=== PATIENT | female | born 1950 | race Caucasian/White ===

== ENCOUNTER 2018-03-02 00:31 | Observation (INO) | payer MEDICARE, OTHER ==
[2018-03-02] MEDS ORDERED: Albuterol/Ipratropium 3.0-0.5 MG/3 ML Neb Soln NEB ONE (00:40)
[2018-03-02] MEDS ORDERED: methylPREDNISolone Sodium Succinate 125 MG/2 ML SDV IVPUSH ONE (00:41)
[2018-03-02] MEDS ORDERED: Albuterol 0.083% 2.5 MG/3 ML Neb Soln NEB PRN (01:59)
--- NOTE | 2018-03-02 01:59 | EDM.PDOC ---
ED HPI GENERAL MEDICAL PROBLEM - General Stated Complaint: TROUBLE BREATHING Time Seen by Provider: 03/02/18 00:31 Source of Information: Reports: Patient, Family History Limitations: Reports: Respiratory Distress - History of Present Illness INITIAL COMMENTS - FREE TEXT/NARRATIVE: 68 y.o.w.f with a h/o COPD-still smoking, not on Home O2- CHF, Lung CA with mets to bones, came to ED due to worsening of her SOB. Pulse ox 88 on RA. In the past, the pt took a Lasix and the SOB improved, not today, however. Pt was able to talk one word sentences only. Her primary survey showed poor air movement throughout her lungs. No F/C, no C/P no N/V/D or dizziness. Pt was never intubated or admitted for her emphysema. No other acute medical issues BP 108/67 pulse 76 RR 22 Pulse 0x 92 on 3 liters O2 by NC Temp 36.7 Onset: Today Onset Date: 03/01/18 Onset Time: 20:00 Duration: Hour(s): Location: Reports: Chest Severity: Moderate Improves with: Reports: Rest Worsens with: Reports: Movement Context: Reports: Other (copd, H/O CHR) Associated Symptoms: Reports: Cough, Shortness of Breath, Weakness - Related Data Allergies Allergy/AdvReac Type Severity Reaction Status Date / Time fentanyl Allergy Delusions Verified 03/02/18 01:40 Home Meds: Home Meds Citalopram Hydrobromide [Celexa] 20 mg PO BID 01/25/15 [History] Famotidine [Pepcid] 10 mg PO BID PRN 01/25/15 [History] Gabapentin [Neurontin] 600 mg PO TID 01/25/15 [History] HYDROmorphone [Dilaudid] 1 - 2 tab PO Q3HR PRN 01/25/15 [History] Loperamide [Imodium] 2 mg PO Q6H PRN 01/25/15 [History] Ondansetron [Zofran] 8 mg PO TID PRN 01/25/15 [History] Amitriptyline [Elavil] 10 mg PO BEDTIME 01/26/15 [History] Furosemide [Lasix] 20 mg PO ASDIRECTED PRN 11/04/16 [History] Pazopanib HCl [Votrient] 600 mg PO DAILY 11/04/16 [History] Amoxicillin/Clavulanate K [Augmentin 875-125 MG] 1 tab PO BID #10 tablet [Rx] Carvedilol [Coreg] 12.5 mg PO BID 03/02/18 [History] Diphenoxylate HCl/Atropine [Lomotil] 1 tab PO Q4H PRN 03/02/18 [History] HYDROmorphone [Dilaudid] 4 mg PO Q3H PRN tablet 03/02/18 [Rx] Ibuprofen 400 mg PO DAILY PRN 03/02/18 [History] Lisinopril [Prinivil] 5 mg PO DAILY 03/02/18 [History] Nitroglycerin [Nitrostat] 0.4 mg SL ASDIRECTED PRN #90 tab.sl 03/02/18 [Rx] Ticagrelor [Brilinta] 90 mg PO BID 03/02/18 [History] atorvaSTATin [Lipitor] 20 mg PO DAILY 03/02/18 [History] predniSONE [Prednisone] 40 mg PO ACBREAKFAST #10 tablet 03/02/18 [Rx] Past Medical History HEENT History: Reports: Impaired Vision, Other (See Below) Respiratory History: Reports: Pneumonia, Recurrent Gastrointestinal History: Reports: GERD Musculoskeletal History: Reports: Fracture, Osteoarthritis Psychiatric History: Reports: Depression Hematologic History: Reports: Polycythemia Oncologic (Cancer) History: Reports: Bone, Metastatic - Past Surgical History GI Surgical History: Reports: Colon, Hernia Repair/Other Female Surgical History: Reports: Hysterectomy, Other (See Below) Social & Family History - Tobacco Use Smoking Status *Q: Current Every Day Smoker Years of Tobacco use: 50 Used Tobacco, but Quit: Yes Month/Year Tobacco Last Used: unknown Second Hand Smoke Exposure: No - Caffeine Use Caffeine Use: Reports: Coffee - Alcohol Use Days Per Week of Alcohol Use: 0 - Recreational Drug Use Recreational Drug Use: No ED ROS GENERAL - Review of Systems Review Of Systems: Unable To Obtain (Due to resp distress) ED EXAM, GENERAL - Physical Exam Exam: See Below Exam Limited By: Respiratory Distress General Appearance: Alert, WD/WN, Moderate Distress, Thin Eye Exam: Bilateral Eye: Normal Inspection Ears: Normal External Exam Ear Exam: Bilateral Ear: Auricle Normal Nose: Normal Inspection, Normal Mucosa Throat/Mouth: Normal Lips, No Airway Compromise Head: Atraumatic, Normocephalic Neck: Normal Inspection, Supple, Non-Tender, Full Range of Motion Respiratory/Chest: Respiratory Distress, Decreased Breath Sounds, Accessory Muscle Use, Prolonged Expiration Cardiovascular: Normal Peripheral Pulses, Regular Rate, Rhythm, No Edema, No Gallop, No JVD Peripheral Pulses: 1+: Radial (L) GI/Abdominal: Normal Bowel Sounds, Soft, Non-Tender, No Organomegaly, No Distention, No Abnormal Bruit (Female) Exam: Deferred Rectal (Female) Exam: Deferred Back Exam: Normal Inspection, Full Range of Motion Extremities: Other (amputated R lower extremity due to mets) Neurological: Alert, Oriented, Abnormal Gait Psychiatric: Normal Affect, Normal Mood Skin Exam: Warm, Dry, Normal Color, No Rash Lymphatic: No Adenopathy EKG INTERPRETATION EKG Date: 03/02/18 Time: 01:35 Rhythm: NSR Rate (Beats/Min): 68 [place]: Normal P-Wave: Present QRS: Normal ST-T: Normal QT: Normal Comparison: NA - No Prior EKG Course - Vital Signs Text/Narrative:: 68 y.o.w.f with a h/o COPD-still smoking, not on Home O2- CHF, Lung CA with mets to bones, came to ED due to worsening of her SOB. Pulse ox 88 on RA. In the past, the pt took a Lasix and the SOB improved, not today, however. Pt was able to talk one word sentences only. Her primary survey showed poor air movement throughout her lungs. No F/C, no C/P no N/V/D or dizziness. Pt was never intubated or admitted for her emphysema. No other acute medical issues BP 108/67 pulse 76 RR 20 Pulse 0x 92 on 3 liters O2 by NC Temp 36.7 PE: thin 68 y.o.w.f with severe COPD, metastatic lung CA, S/P R lower leg amputation, able to talk one word sentence. Imaging: CXR Emphysema with mets Labs: WBC 8.5 HGB 17.6 HCT 49.5 BUN 20 Cr. 0.7 BUN/CR elevated GFR >60 BNP 775 Impression: COPD exacerbation, dehydration, H/O CHF, Metastatic lung CA, S/P amputation of right lower extremity. Full Code Tx: Duoneb, Solu Medrol, O2 by NC 3 liters. NS (250 cc bolus) Reexam: Improved Plan: Admit to obs Last Recorded V/S: Last Vital Signs Temp 36.3 C 03/02/18 08:27 Pulse 74 03/02/18 11:00 Resp 18 03/02/18 08:27 BP 115/75 03/02/18 08:27 Pulse Ox 93 L 03/02/18 11:02 - Orders/Labs/Meds Orders: Active Orders 24 hr Category Date Time Status Patient Status [ADT] Routine ADT 03/02/18 02:00 Active Oxygen Therapy [RC] PRN Care 03/02/18 02:00 Active Pulse Oximetry [RC] PRN Care 03/02/18 02:02 Active RT Aerosol Therapy [RC] ASDIRECTED Care 03/02/18 00:40 Active Up With Assistance [RC] ASDIRECTED Care 03/02/18 01:59 Active Vital Signs [RC] Q4H Care 03/02/18 02:00 Active Heart Healthy Diet [DIET] Diet 03/02/18 Breakfast Ordered Chest 1V Frontal [CR] Stat Exams 03/02/18 00:41 Taken CULTURE BLOOD [BC] Urgent Lab 03/02/18 00:58 Received CULTURE BLOOD [BC] Urgent Lab 03/02/18 01:05 Received Blood Culture x2 Reflex Set [OM.PC] Urgent Oth 03/02/18 00:41 Ordered Resuscitation Status Routine Resus Stat 03/02/18 01:59 Ordered EKG 12 Lead [EK] Routine Ther 03/02/18 00:42 Ordered Medication Orders Albuterol (Proventil Neb Soln) 2.5 mg NEB Q4H PRN PRN Reason: q4h every 4 hours while a wake Last Admin: 03/02/18 04:58 Dose: 2.5 mg Amitriptyline HCl (Elavil) 10 mg PO BEDTIME [facility] Amoxicillin/Clavulanate Potassium (Augmentin 875 Mg/125 Mg) 1 tab PO BID [facility] Stop: 03/08/18 21:01 Last Admin: 03/02/18 10:47 Dose: 1 tab Atorvastatin Calcium (Lipitor) 20 mg PO DAILY [facility] Last Admin: 03/02/18 10:46 Dose: 20 mg Carvedilol (Coreg) 12.5 mg PO BID [facility] Last Admin: 03/02/18 10:46 Dose: 12.5 mg Citalopram Hydrobromide (Celexa) 20 mg PO BID [facility] Last Admin: 03/02/18 10:46 Dose: 20 mg Diphenoxylate HCl/Atropine (Lomotil 0.025-2.5 Mg) 1 tab PO Q4H PRN PRN Reason: Diarrhea Famotidine (Pepcid) 10 mg PO BID PRN PRN Reason: Heartburn Furosemide (Lasix) 20 mg PO ASDIRECTED PRN PRN Reason: Edema Gabapentin (Neurontin) 600 mg PO TID [facility] Last Admin: 03/02/18 10:47 Dose: 600 mg Hydromorphone HCl (Dilaudid) 4 mg PO Q3H PRN PRN Reason: cancer and phantom pain Last Admin: 03/02/18 08:41 Dose: 4 mg Admin: 03/02/18 03:37 Dose: 4 mg Sodium Chloride (Normal Saline) 250 mls @ 125 mls/hr IV ASDIRECTED [facility] Last Admin: 03/02/18 02:32 Dose: 125 mls/hr Lisinopril (Prinivil) 5 mg PO DAILY [facility] Last Admin: 03/02/18 10:47 Dose: 5 mg Loperamide HCl (Imodium) 2 mg PO Q6H PRN PRN Reason: Diarrhea Methylprednisolone Sodium Succinate (Solu-Medrol) 125 mg IVPUSH Q8H [facility] Last Admin: 03/02/18 08:42 Dose: 125 mg Miscellaneous Information (Remove Patch) 1 ea TRDERM BEDTIME PRN PRN Reason: NICOTINE PATCH Nicotine (Habitrol) 14 mg TRDERM DAILY PRN PRN Reason: nicotine supplement Nitroglycerin (Nitrostat) 0.4 mg SL ASDIRECTED PRN PRN Reason: Chest Pain Sodium Chloride (Saline Flush) 10 ml FLUSH ASDIRECTED PRN PRN Reason: Keep Vein Open Last Admin: 03/02/18 09:09 Dose: 10 ml Ticagrelor (Brilinta) 90 mg PO BID [facility] Last Admin: 03/02/18 10:46 Dose: 90 mg Labs: Laboratory Tests 03/02/18 03/02/18 03/02/18 Range/Units 00:58 00:58 00:58 WBC 8.5 (4.5-12.0) X10-3/uL RBC 5.24 H (3.23-5.20) x10(6)uL Hgb 17.6 H D (11.5-15.5) g/dL Hct 52.7 H D (30.0-51.3) % MCV 100.7 H (80-96) fL MCH 33.6 (27.7-33.6) pg MCHC 33.4 (32.2-35.4) g/dL RDW 13.7 (11.5-15.5) % Plt Count 192 (125-369) X10(3)uL MPV 9.2 (7.4-10.4) fL Neut % (Auto) 59.7 (46-82) % Lymph % (Auto) 30.0 (13-37) % Hunt % (Auto) 8.2 (4-12) % Eos % (Auto) 1 (1.0-5.0) % Baso % (Auto) 1 (0-2) % Neut # (Auto) 5.0 (1.6-8.3) # Lymph # (Auto) 2.6 (0.6-5.0) # Hunt # (Auto) 0.7 (0.0-1.3) # Eos # (Auto) 0.1 (0.0-0.8) # Baso # (Auto) 0.1 (0.0-0.2) # PT 9.7 (8.7-11.1) INR 0.96 (0.89-1.13) Sodium 138 (135-145) mmol/L Potassium 3.8 (3.5-5.3) mmol/L Chloride 99 L (100-110) mmol/L Carbon Dioxide 32 (21-32) mmol/L BUN 20 H (7-18) mg/dL Creatinine 0.7 (0.55-1.02) mg/dL Est Cr Clr Drug Dosing TNP Estimated GFR (MDRD) > 60 (>60) BUN/Creatinine Ratio 28.6 H (9-20) Glucose 98 (80-116) mg/dL Lactic Acid (0.4-2.2) mmol/L Calcium 9.4 (8.6-10.2) mg/dL Troponin I (<0.017-0.056) ng/mL C-Reactive Protein (0.5-0.9) mg/dL NT-Pro-B Natriuret Pep (<=125) pg/mL 03/02/18 03/02/18 03/02/18 Range/Units 00:58 00:58 01:05 WBC (4.5-12.0) X10-3/uL RBC (3.23-5.20) x10(6)uL Hgb (11.5-15.5) g/dL Hct (30.0-51.3) % MCV (80-96) fL MCH (27.7-33.6) pg MCHC (32.2-35.4) g/dL RDW (11.5-15.5) % Plt Count (125-369) X10(3)uL MPV (7.4-10.4) fL Neut % (Auto) (46-82) % Lymph % (Auto) (13-37) % Hunt % (Auto) (4-12) % Eos % (Auto) (1.0-5.0) % Baso % (Auto) (0-2) % Neut # (Auto) (1.6-8.3) # Lymph # (Auto) (0.6-5.0) # Hunt # (Auto) (0.0-1.3) # Eos # (Auto) (0.0-0.8) # Baso # (Auto) (0.0-0.2) # PT (8.7-11.1) INR (0.89-1.13) Sodium (135-145) mmol/L Potassium (3.5-5.3) mmol/L Chloride (100-110) mmol/L Carbon Dioxide (21-32) mmol/L BUN (7-18) mg/dL Creatinine (0.55-1.02) mg/dL Est Cr Clr Drug Dosing Estimated GFR (MDRD) (>60) BUN/Creatinine Ratio (9-20) Glucose (80-116) mg/dL Lactic Acid 0.8 (0.4-2.2) mmol/L Calcium (8.6-10.2) mg/dL Troponin I < 0.017 L (<0.017-0.056) ng/mL C-Reactive Protein 0.2 L (0.5-0.9) mg/dL NT-Pro-B Natriuret Pep 774 H (<=125) pg/mL Meds: Medications Generic Name Dose Route Start Last Admin Trade Name Freq PRN Reason Stop Dose Admin Albuterol 2.5 mg 03/02/18 02:08 03/02/18 04:58 Proventil Neb Soln NEB 2.5 mg Q4H PRN Administration q4h every 4 hours while a wake Amitriptyline HCl 10 mg 03/02/18 21:00 Elavil PO BEDTIME [facility] Amoxicillin/Clavulanate Potassium 1 tab 03/02/18 10:00 03/02/18 10:47 Augmentin 875 Mg/125 Mg PO 03/08/18 21:01 1 tab BID [facility] Administration Atorvastatin Calcium 20 mg 03/02/18 09:30 03/02/18 10:46 Lipitor PO 20 mg DAILY [facility] Administration Carvedilol 12.5 mg 03/02/18 09:30 03/02/18 10:46 Coreg PO 12.5 mg BID [facility] Administration Citalopram Hydrobromide 20 mg 03/02/18 09:30 03/02/18 10:46 Celexa PO 20 mg BID [facility] Administration Diphenoxylate HCl/Atropine 1 tab 03/02/18 09:17 Lomotil 0.025-2.5 Mg PO Q4H PRN Diarrhea Famotidine 10 mg 03/02/18 09:17 Pepcid PO BID PRN Heartburn Furosemide 20 mg 03/02/18 09:17 Lasix PO ASDIRECTED PRN Edema Gabapentin 600 mg 03/02/18 10:00 03/02/18 10:47 Neurontin PO 600 mg TID [facility] Administration Hydromorphone HCl 4 mg 03/02/18 03:28 03/02/18 08:41 Dilaudid PO 4 mg Q3H PRN Administration cancer and phantom pain Sodium Chloride 250 mls @ 125 mls/hr 03/02/18 02:30 03/02/18 02:32 Normal Saline IV 125 mls/hr ASDIRECTED [facility] Administration Lisinopril 5 mg 03/02/18 09:30 03/02/18 10:47 Prinivil PO 5 mg DAILY [facility] Administration Loperamide HCl 2 mg 03/02/18 09:17 Imodium PO Q6H PRN Diarrhea Methylprednisolone Sodium Succinate 125 mg 03/02/18 09:00 03/02/18 08:42 Solu-Medrol IVPUSH 125 mg Q8H [facility] Administration Miscellaneous Information 1 ea 03/02/18 10:11 Remove Patch TRDERM BEDTIME PRN NICOTINE PATCH Nicotine 14 mg 03/02/18 09:23 Habitrol TRDERM DAILY PRN nicotine supplement Nitroglycerin 0.4 mg 03/02/18 09:17 Nitrostat SL ASDIRECTED PRN Chest Pain Sodium Chloride 10 ml 03/02/18 08:52 03/02/18 09:09 Saline Flush FLUSH 10 ml ASDIRECTED PRN Administration Keep Vein Open Ticagrelor 90 mg 03/02/18 09:30 03/02/18 10:46 Brilinta PO 90 mg BID [facility] Administration Discontinued Medications Generic Name Dose Route Start Last Admin Trade Name Freq PRN Reason Stop Dose Admin Acetaminophen 650 mg 03/02/18 09:23 Tylenol PO Q4H PRN Pain (Mild 1-3)/fever Albuterol 2.5 mg 03/02/18 01:59 Proventil Neb Soln NEB Q2H PRN Shortness Of Breath/wheezing Albuterol/Ipratropium 3 ml 03/02/18 00:40 03/02/18 00:53 Duoneb 3.0-0.5 Mg/3 Ml NEB 03/02/18 00:41 3 ml ONETIME ONE Administration Docusate Sodium 100 mg 03/02/18 09:23 Colace PO BID PRN Constipation Enoxaparin Sodium 30 mg 03/02/18 10:00 03/02/18 10:48 Lovenox SUBCUT Not Given Q24H [facility] Sodium Chloride 1,000 mls @ 125 mls/hr 03/02/18 02:00 Normal Saline IV ASDIRECTED [facility] Lactated Ringer's 1,000 mls @ 125 mls/hr 03/02/18 09:30 Ringers, Lactated IV ASDIRECTED [facility] Methylprednisolone Sodium Succinate 125 mg 03/02/18 00:41 03/02/18 01:06 Solu-Medrol IVPUSH 03/02/18 00:42 125 mg ONETIME ONE Administration Methylprednisolone Sodium Succinate 125 mg 03/02/18 02:15 03/02/18 03:20 Solu-Medrol IVPUSH Not Given Q8H [facility] Zolpidem Tartrate 5 mg 03/02/18 09:23 Ambien PO BEDTIME PRN Sleep Departure - Departure Time of Disposition: 01:59 Disposition: Refer to Observation Condition: Fair Clinical Impression: COPD exacerbation - Discharge Information - My Orders Last 24 Hours: My Active Orders 03/02/18 00:40 RT Aerosol Therapy [RC] ASDIRECTED 03/02/18 00:41 Chest 1V Frontal [CR] Stat Blood Culture x2 Reflex Set [OM.PC] Urgent 03/02/18 00:42 EKG 12 Lead [EK] Routine 03/02/18 00:58 CULTURE BLOOD [BC] Urgent 03/02/18 01:05 CULTURE BLOOD [BC] Urgent 03/02/18 01:59 Up With Assistance [RC] ASDIRECTED Resuscitation Status Routine 03/02/18 02:00 Patient Status [ADT] Routine Oxygen Therapy [RC] PRN Vital Signs [RC] Q4H 03/02/18 02:02 Pulse Oximetry [RC] PRN 03/02/18 Breakfast Heart Healthy Diet [DIET] - Assessment/Plan Last 24 Hours: My Active Orders 03/02/18 00:40 RT Aerosol Therapy [RC] ASDIRECTED 03/02/18 00:41 Chest 1V Frontal [CR] Stat Blood Culture x2 Reflex Set [OM.PC] Urgent 03/02/18 00:42 EKG 12 Lead [EK] Routine 03/02/18 00:58 CULTURE BLOOD [BC] Urgent 03/02/18 01:05 CULTURE BLOOD [BC] Urgent 03/02/18 01:59 Up With Assistance [RC] ASDIRECTED Resuscitation Status Routine 03/02/18 02:00 Patient Status [ADT] Routine Oxygen Therapy [RC] PRN Vital Signs [RC] Q4H 03/02/18 02:02 Pulse Oximetry [RC] PRN 03/02/18 Breakfast Heart Healthy Diet [DIET]
[2018-03-02] MEDS ORDERED: Sodium Chloride 0.9% 1,000 ML IV SCH (02:00)
[2018-03-02] MEDS ORDERED: methylPREDNISolone Sodium Succinate 125 MG/2 ML SDV IVPUSH SCH ×2 (02:15→09:00)
[2018-03-02] MEDS ORDERED: Sodium Chloride 0.9% 250 ML IV SCH (02:30)
[2018-03-02] MEDS: HYDROmorphone 2 MG Tab PO PRN ×2 (03:37→08:41)
[2018-03-02] MEDS: Albuterol 0.083% 2.5 MG/3 ML Neb Soln NEB PRN ×2 (04:58→13:10)
[2018-03-02 08:29] VITALS: BP 115/75
[2018-03-02] MEDS ORDERED: Sodium Chloride 0.9% 10 ML Syringe FLUSH PRN (08:52)
[2018-03-02] MEDS ORDERED: Furosemide 20 MG Tab PO PRN (09:17)
[2018-03-02] MEDS ORDERED: Loperamide 2 MG Cap PO PRN (09:17)
[2018-03-02] MEDS ORDERED: Nitroglycerin 0.4 MG Tab.SL SL PRN (09:17)
[2018-03-02] MEDS ORDERED: Atropine/Diphenoxylate 0.025-2.5 MG Tab PO PRN (09:17)
[2018-03-02] MEDS ORDERED: FAMOTIDINE 10 MG PO PRN (09:17)
[2018-03-02] MEDS ORDERED: Docusate Sodium 100 MG Cap PO PRN (09:23)
[2018-03-02] MEDS ORDERED: Nicotine 14 MG/24 Hr Patch TRDERM PRN (09:23)
[2018-03-02] MEDS ORDERED: Zolpidem 5 MG Tab PO PRN (09:23)
[2018-03-02] MEDS ORDERED: Acetaminophen 325 MG Tab PO PRN (09:23)
[2018-03-02] MEDS ORDERED: LISINOPRIL 5 MG PO SCH (09:30)
[2018-03-02] MEDS ORDERED: Lactated Ringers 1,000 ML IV SCH (09:30)
[2018-03-02] MEDS ORDERED: CITALOPRAM 20 MG PO SCH (09:30)
[2018-03-02] MEDS ORDERED: ATORVASTATIN 20 MG PO SCH (09:30)
[2018-03-02] MEDS ORDERED: CARVEDILOL 12.5 MG PO SCH (09:30)
[2018-03-02] MEDS ORDERED: TICAGRELOR 90 MG PO SCH (09:30)
[2018-03-02] MEDS ORDERED: Enoxaparin 30 MG/0.3 ML Syringe SUBCUT SCH (10:00)
[2018-03-02] MEDS ORDERED: Gabapentin 300 MG Cap*PTOM PO SCH (10:00)
[2018-03-02] MEDS ORDERED: Amoxicillin/Clavulanate K 875-125 MG Tab PO SCH (10:00)
--- NOTE | 2018-03-02 10:05 | PCM.HP ---
H&P History of Present Illness - General Date of Service: 03/02/18 Admit Problem/Dx: Admission Diagnosis/Problem Admission Diagnosis/Problem COPD, Mild chronic obstructive pulmonary disease - History of Present Illness Initial Comments - Free Text/Narative: Patient's a 68-year-old female presenting to the ER with increasing cough change in sputum production and shortness of breath. 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 No fever or chills headache neck pain sore throat difficulty swallowing chest pressure midsternal or interscapular pain. She did complain of dyspnea at rest and with exertion. Wheezing. Denied palpitations or sudden onset edema. She has not had any nausea or vomiting. Denied any dysuria hematuria flank pain pelvic pain abdominal pain black or bloody stools joint swelling or tenderness. Presentation to the ER she was found initially to have increased work of breathing with respiratory rate between 22-30 bpm O2 sats 84% on room air which came up to 92% on 3 L by nasal cannula. She is afebrile blood pressure 108/67 mmHg pulse 76. Onset of Symptoms: Reports: Gradual - Related Data Allergies/Adverse Reactions: Allergies Allergy/AdvReac Type Severity Reaction Status Date / Time fentanyl Allergy Delusions Verified 03/02/18 01:40 Home Medications: Home Meds Citalopram Hydrobromide [Celexa] 20 mg PO BID 01/25/15 [History] Famotidine [Pepcid] 10 mg PO BID PRN 01/25/15 [History] Gabapentin [Neurontin] 600 mg PO TID 01/25/15 [History] HYDROmorphone [Dilaudid] 1 - 2 tab PO Q3HR PRN 01/25/15 [History] Loperamide [Imodium] 2 mg PO Q6H PRN 01/25/15 [History] Ondansetron [Zofran] 8 mg PO TID PRN 01/25/15 [History] Amitriptyline [Elavil] 10 mg PO BEDTIME 01/26/15 [History] Furosemide [Lasix] 20 mg PO ASDIRECTED PRN 11/04/16 [History] Pazopanib HCl [Votrient] 600 mg PO DAILY 11/04/16 [History] Amoxicillin/Clavulanate K [Augmentin 875-125 MG] 1 tab PO BID #10 tablet [Rx] Carvedilol [Coreg] 12.5 mg PO BID 03/02/18 [History] Diphenoxylate HCl/Atropine [Lomotil] 1 tab PO Q4H PRN 03/02/18 [History] HYDROmorphone [Dilaudid] 4 mg PO Q3H PRN tablet 03/02/18 [Rx] Ibuprofen 400 mg PO DAILY PRN 03/02/18 [History] Lisinopril [Prinivil] 5 mg PO DAILY 03/02/18 [History] Nitroglycerin [Nitrostat] 0.4 mg SL ASDIRECTED PRN #90 tab.sl 03/02/18 [Rx] Ticagrelor [Brilinta] 90 mg PO BID 03/02/18 [History] atorvaSTATin [Lipitor] 20 mg PO DAILY 03/02/18 [History] predniSONE [Prednisone] 40 mg PO ACBREAKFAST #10 tablet 03/02/18 [Rx] Past Medical History HEENT History: Reports: Impaired Vision, Other (See Below) Cardiovascular History: Reports: [place], Stents Respiratory History: Reports: Pneumonia, Recurrent Other Respiratory History: Emphysema Gastrointestinal History: Reports: GERD Musculoskeletal History: Reports: Fracture, Osteoarthritis Psychiatric History: Reports: Depression Hematologic History: Reports: Polycythemia Oncologic (Cancer) History: Reports: Bone, Metastatic - Past Surgical History GI Surgical History: Reports: Colon, Hernia Repair/Other Female Surgical History: Reports: Hysterectomy, Other (See Below) Social & Family History - Family History Family Medical History: Unobtainable - Tobacco Use Smoking Status *Q: Current Every Day Smoker Years of Tobacco use: 50 Packs/Tins Daily: 0.5 Used Tobacco, but Quit: Yes Month/Year Tobacco Last Used: unknown Tobacco Use Comment: and myself both smoked Second Hand Smoke Exposure: No - Caffeine Use Caffeine Use: Reports: Coffee Other Caffeine Use: 3-4 cups daily - Alcohol Use Days Per Week of Alcohol Use: 0 - Recreational Drug Use Recreational Drug Use: No H&P Review of Systems - Review of Systems: Review Of Systems: ROS reveals no pertinent complaints other than HPI. Exam - Exam Exam: See Below - Vital Signs Vital Signs: Last Vital Signs Temp 97.4 F 03/02/18 08:27 Pulse 72 03/02/18 05:48 Resp 18 03/02/18 08:27 BP 115/75 03/02/18 08:27 Pulse Ox 95 03/02/18 08:27 Weight: 48.591 kg - Exam Quality Assessment: Supplemental Oxygen Physical Exam Comments:: General Appearance: Alert, WD/WN, aspirations unlabored, pleasant and speaking complete sentences. Neck: Normal Inspection, Supple, Non-Tender thyromegaly trachea midline Respiratory/Chest: Decreased Breath Sounds, however no accessory muscle use. prolonged expiration. Cardiovascular: Normal Peripheral Pulses, Regular Rate, Rhythm, No Edema, No Gallop, No JVD GI/Abdominal: Normal Bowel Sounds, Soft, Non-Tender, No Organomegaly, No Distention, No Abnormal Bruit Back Exam: Normal Inspection, Full Range of Motion Extremities: Other (amputated R lower extremity due to mets) Neurological: Alert, Oriented Psychiatric: Normal Affect, Normal Mood Skin Exam: Warm, Dry, Normal Color, No Rash - Patient Data Lab Results Last 24 hrs: Laboratory Results - last 24 hr 03/02/18 03/02/18 03/02/18 Range/Units 00:58 00:58 00:58 WBC 8.5 (4.5-12.0) X10-3/uL RBC 5.24 H (3.23-5.20) x10(6)uL Hgb 17.6 H D (11.5-15.5) g/dL Hct 52.7 H D (30.0-51.3) % MCV 100.7 H (80-96) fL MCH 33.6 (27.7-33.6) pg MCHC 33.4 (32.2-35.4) g/dL RDW 13.7 (11.5-15.5) % Plt Count 192 (125-369) X10(3)uL MPV 9.2 (7.4-10.4) fL Neut % (Auto) 59.7 (46-82) % Lymph % (Auto) 30.0 (13-37) % Foard % (Auto) 8.2 (4-12) % Eos % (Auto) 1 (1.0-5.0) % Baso % (Auto) 1 (0-2) % Neut # (Auto) 5.0 (1.6-8.3) # Lymph # (Auto) 2.6 (0.6-5.0) # Foard # (Auto) 0.7 (0.0-1.3) # Eos # (Auto) 0.1 (0.0-0.8) # Baso # (Auto) 0.1 (0.0-0.2) # PT 9.7 (8.7-11.1) INR 0.96 (0.89-1.13) Sodium 138 (135-145) mmol/L Potassium 3.8 (3.5-5.3) mmol/L Chloride 99 L (100-110) mmol/L Carbon Dioxide 32 (21-32) mmol/L BUN 20 H (7-18) mg/dL Creatinine 0.7 (0.55-1.02) mg/dL Est Cr Clr Drug Dosing TNP Estimated GFR (MDRD) > 60 (>60) BUN/Creatinine Ratio 28.6 H (9-20) Glucose 98 (80-116) mg/dL Lactic Acid (0.4-2.2) mmol/L Calcium 9.4 (8.6-10.2) mg/dL Troponin I (<0.017-0.056) ng/mL C-Reactive Protein (0.5-0.9) mg/dL NT-Pro-B Natriuret Pep (<=125) pg/mL Urine Color (YELLOW) Urine Appearance (CLEAR) Urine pH (5.0-6.5) Ur Specific [place] (1.010-1.025) Urine Protein (NEGATIVE) mg/dL Urine Glucose (UA) (NEGATIVE) mg/dL Urine Ketones (NEGATIVE) mg/dL Urine Occult Blood (NEGATIVE) Urine Nitrite (NEGATIVE) Urine Bilirubin (NEGATIVE) Urine Urobilinogen (NEGATIVE) mg/dL Ur Leukocyte Esterase (NEGATIVE) Urine RBC (0) Urine WBC (0) Ur Squamous Epith Cells (NS,R,O) Urine Bacteria (NS) 03/02/18 03/02/18 03/02/18 Range/Units 00:58 00:58 01:05 WBC (4.5-12.0) X10-3/uL RBC (3.23-5.20) x10(6)uL Hgb (11.5-15.5) g/dL Hct (30.0-51.3) % MCV (80-96) fL MCH (27.7-33.6) pg MCHC (32.2-35.4) g/dL RDW (11.5-15.5) % Plt Count (125-369) X10(3)uL MPV (7.4-10.4) fL Neut % (Auto) (46-82) % Lymph % (Auto) (13-37) % Foard % (Auto) (4-12) % Eos % (Auto) (1.0-5.0) % Baso % (Auto) (0-2) % Neut # (Auto) (1.6-8.3) # Lymph # (Auto) (0.6-5.0) # Foard # (Auto) (0.0-1.3) # Eos # (Auto) (0.0-0.8) # Baso # (Auto) (0.0-0.2) # PT (8.7-11.1) INR (0.89-1.13) Sodium (135-145) mmol/L Potassium (3.5-5.3) mmol/L Chloride (100-110) mmol/L Carbon Dioxide (21-32) mmol/L BUN (7-18) mg/dL Creatinine (0.55-1.02) mg/dL Est Cr Clr Drug Dosing Estimated GFR (MDRD) (>60) BUN/Creatinine Ratio (9-20) Glucose (80-116) mg/dL Lactic Acid 0.8 (0.4-2.2) mmol/L Calcium (8.6-10.2) mg/dL Troponin I < 0.017 L (<0.017-0.056) ng/mL C-Reactive Protein 0.2 L (0.5-0.9) mg/dL NT-Pro-B Natriuret Pep 774 H (<=125) pg/mL Urine Color (YELLOW) Urine Appearance (CLEAR) Urine pH (5.0-6.5) Ur Specific [place] (1.010-1.025) Urine Protein (NEGATIVE) mg/dL Urine Glucose (UA) (NEGATIVE) mg/dL Urine Ketones (NEGATIVE) mg/dL Urine Occult Blood (NEGATIVE) Urine Nitrite (NEGATIVE) Urine Bilirubin (NEGATIVE) Urine Urobilinogen (NEGATIVE) mg/dL Ur Leukocyte Esterase (NEGATIVE) Urine RBC (0) Urine WBC (0) Ur Squamous Epith Cells (NS,R,O) Urine Bacteria (NS) 03/02/18 Range/Units 02:30 WBC (4.5-12.0) X10-3/uL RBC (3.23-5.20) x10(6)uL Hgb (11.5-15.5) g/dL Hct (30.0-51.3) % MCV (80-96) fL MCH (27.7-33.6) pg MCHC (32.2-35.4) g/dL RDW (11.5-15.5) % Plt Count (125-369) X10(3)uL MPV (7.4-10.4) fL Neut % (Auto) (46-82) % Lymph % (Auto) (13-37) % Foard % (Auto) (4-12) % Eos % (Auto) (1.0-5.0) % Baso % (Auto) (0-2) % Neut # (Auto) (1.6-8.3) # Lymph # (Auto) (0.6-5.0) # Foard # (Auto) (0.0-1.3) # Eos # (Auto) (0.0-0.8) # Baso # (Auto) (0.0-0.2) # PT (8.7-11.1) INR (0.89-1.13) Sodium (135-145) mmol/L Potassium (3.5-5.3) mmol/L Chloride (100-110) mmol/L Carbon Dioxide (21-32) mmol/L BUN (7-18) mg/dL Creatinine (0.55-1.02) mg/dL Est Cr Clr Drug Dosing Estimated GFR (MDRD) (>60) BUN/Creatinine Ratio (9-20) Glucose (80-116) mg/dL Lactic Acid (0.4-2.2) mmol/L Calcium (8.6-10.2) mg/dL Troponin I (<0.017-0.056) ng/mL C-Reactive Protein (0.5-0.9) mg/dL NT-Pro-B Natriuret Pep (<=125) pg/mL Urine Color Yellow (YELLOW) Urine Appearance Clear (CLEAR) Urine pH 5.0 (5.0-6.5) Ur Specific [place] 1.015 (1.010-1.025) Urine Protein Negative (NEGATIVE) mg/dL Urine Glucose (UA) Normal (NEGATIVE) mg/dL Urine Ketones Negative (NEGATIVE) mg/dL Urine Occult Blood Moderate H (NEGATIVE) Urine Nitrite Negative (NEGATIVE) Urine Bilirubin Negative (NEGATIVE) Urine Urobilinogen Normal (NEGATIVE) mg/dL Ur Leukocyte Esterase Negative (NEGATIVE) Urine RBC 0-5 (0) Urine WBC 0-5 (0) Ur Squamous Epith Cells Few H (NS,R,O) Urine Bacteria Few H (NS) Result Diagrams: 03/02/18 00:58 03/02/18 00:58 Imaging Impressions Last 24 hrs: Chest x-ray EKG reviewed - Problem List (1) COPD exacerbation SNOMED Code(s): 587332425 ICD Code: J44.1 - CHRONIC OBSTRUCTIVE PULMONARY DISEASE W (ACUTE) EXACERBATION Status: Acute Problem List Initiated/Reviewed/Updated: Yes Orders Last 24hrs: Active Orders 24 hr Category Date Time Status Patient Status [ADT] Routine ADT 03/02/18 02:00 Active Cardiac Education [RC] Click to Edit Care 03/02/18 09:21 Active Communication Order [RC] ASDIRECTED Care 03/02/18 09:15 Active Height and Weight [RC] DAILY Care 03/02/18 09:23 Active Intake and Output [RC] Q4H Care 03/02/18 09:23 Active May Shower [RC] ASDIRECTED Care 03/02/18 09:23 Active Notify Provider Vital Signs [RC] ASDIRECTED Care 03/02/18 09:23 Active Notify Provider [RC] PRN Care 03/02/18 09:15 Active Oxygen Therapy [RC] PRN Care 03/02/18 02:00 Active Pulse Oximetry [RC] PRN Care 03/02/18 02:02 Active RT Aerosol Therapy [RC] ASDIRECTED Care 03/02/18 00:40 Active RT Incentive Spirometry [RC] Q2HWA Care 03/02/18 09:15 Active Up With Assistance [RC] ASDIRECTED Care 03/02/18 01:59 Active VTE/DVT Education [RC] Per Unit Routine Care 03/02/18 09:23 Active Vital Signs [RC] Q4H Care 03/02/18 02:00 Active Respiratory Care Assess and Treatment [CONS] Routine Cons 03/02/18 09:23 Active Heart Healthy Diet [DIET] Diet 03/02/18 Breakfast Ordered Chest 1V Frontal [CR] Stat Exams 03/02/18 00:41 Taken BASIC METABOLIC PANEL,BMP [CHEM] AM Lab 03/03/18 05:11 Ordered C-REACTIVE PROTEIN [CHEM] AM Lab 03/03/18 05:11 Ordered CBC W/O DIFF,HEMOGRAM [HEME] AM Lab 03/03/18 05:11 Ordered CULTURE BLOOD [BC] Urgent Lab 03/02/18 00:58 Received CULTURE BLOOD [BC] Urgent Lab 03/02/18 01:05 Received URINALYSIS W/MICROSCOPIC [UA W/MICROSCOPIC] [URIN] Stat Lab 03/02/18 02:30 Ordered Acetaminophen [Tylenol] Med 03/02/18 09:23 Active 650 mg PO Q4H PRN Albuterol [Proventil Neb Soln] Med 03/02/18 02:08 Active 2.5 mg NEB Q4H PRN Amitriptyline [Elavil] Med 03/02/18 21:00 Ordered 10 mg PO BEDTIME Amoxicillin/Clavulanate K [Augmentin 875 MG/125 MG] Med 03/02/18 10:00 Active 1 tab PO BID Atropine/Diphenoxylate [Lomotil 0.025-2.5 MG] Med 03/02/18 09:17 Ordered 1 tab PO Q4H PRN Carvedilol [Coreg] Med 03/02/18 09:30 Ordered 12.5 mg PO BID Citalopram Hydrobromide [Celexa] Med 03/02/18 09:30 Ordered 20 mg PO BID Docusate Sodium [Colace] Med 03/02/18 09:23 Ordered 100 mg PO BID PRN Enoxaparin [Lovenox] Med 03/02/18 09:30 Ordered 30 mg SUBCUT Q24H Famotidine [Pepcid] Med 03/02/18 09:17 Ordered 10 mg PO BID PRN Furosemide [Lasix] Med 03/02/18 09:17 Ordered 20 mg PO ASDIRECTED PRN Gabapentin [Neurontin] Med 03/02/18 14:00 Ordered 600 mg PO TID HYDROmorphone [Dilaudid] Med 03/02/18 03:28 Active 4 mg PO Q3H PRN Lactated Ringers [Ringers, Lactated] 1,000 ml Med 03/02/18 09:30 Ordered IV ASDIRECTED Lisinopril [Prinivil] Med 03/02/18 09:30 Ordered 5 mg PO DAILY Loperamide [Imodium] Med 03/02/18 09:17 Ordered 2 mg PO Q6H PRN Nicotine [Habitrol] Med 03/02/18 09:23 Ordered 14 mg TRDERM DAILY PRN Nitroglycerin [Nitrostat] Med 03/02/18 09:17 Ordered 0.4 mg SL ASDIRECTED PRN Sodium Chloride 0.9% [Normal Saline] 250 ml Med 03/02/18 02:30 Active IV ASDIRECTED Sodium Chloride 0.9% [Saline Flush] Med 03/02/18 08:52 Active 10 ml FLUSH ASDIRECTED PRN Ticagrelor [Brilinta] Med 03/02/18 09:30 Ordered 90 mg PO BID Zolpidem [Ambien] Med 03/02/18 09:23 Ordered 5 mg PO BEDTIME PRN atorvaSTATin [Lipitor] Med 03/02/18 09:30 Ordered 20 mg PO DAILY methylPREDNISolone Sod Succ [Solu-MEDROL] Med 03/02/18 09:00 Active 125 mg IVPUSH Q8H Blood Culture x2 Reflex Set [OM.PC] Urgent Oth 03/02/18 00:41 Ordered Resuscitation Status Routine Resus Stat 03/02/18 01:59 Ordered EKG 12 Lead [EK] Routine Ther 03/02/18 00:42 Ordered Medication Orders Acetaminophen (Tylenol) 650 mg PO Q4H PRN PRN Reason: Pain (Mild 1-3)/fever Albuterol (Proventil Neb Soln) 2.5 mg NEB Q4H PRN PRN Reason: q4h every 4 hours while a wake Last Admin: 03/02/18 04:58 Dose: 2.5 mg Amitriptyline HCl (Elavil) 10 mg PO BEDTIME [facility] Amoxicillin/Clavulanate Potassium (Augmentin 875 Mg/125 Mg) 1 tab PO BID [facility] Stop: 03/08/18 21:01 Atorvastatin Calcium (Lipitor) 20 mg PO DAILY [facility] Carvedilol (Coreg) 12.5 mg PO BID [facility] Diphenoxylate HCl/Atropine (Lomotil 0.025-2.5 Mg) 1 tab PO Q4H PRN PRN Reason: Diarrhea Docusate Sodium (Colace) 100 mg PO BID PRN PRN Reason: Constipation Enoxaparin Sodium (Lovenox) 30 mg SUBCUT Q24H [facility] Famotidine (Pepcid) 10 mg PO BID PRN PRN Reason: Heartburn Furosemide (Lasix) 20 mg PO ASDIRECTED PRN PRN Reason: Edema Gabapentin (Neurontin) 600 mg PO TID [facility] Hydromorphone HCl (Dilaudid) 4 mg PO Q3H PRN PRN Reason: cancer and phantom pain Last Admin: 03/02/18 08:41 Dose: 4 mg Admin: 03/02/18 03:37 Dose: 4 mg Sodium Chloride (Normal Saline) 250 mls @ 125 mls/hr IV ASDIRECTED FILOMENA Last Admin: 03/02/18 02:32 Dose: 125 mls/hr Lactated Ringer's (Ringers, Lactated) 1,000 mls @ 125 mls/hr IV ASDIRECTED [facility] Lisinopril (Prinivil) 5 mg PO DAILY [facility] Loperamide HCl (Imodium) 2 mg PO Q6H PRN PRN Reason: Diarrhea Methylprednisolone Sodium Succinate (Solu-Medrol) 125 mg IVPUSH Q8H [facility] Last Admin: 03/02/18 08:42 Dose: 125 mg Nicotine (Habitrol) 14 mg TRDERM DAILY PRN PRN Reason: nicotine supplement Nitroglycerin (Nitrostat) 0.4 mg SL ASDIRECTED PRN PRN Reason: Chest Pain Non-Formulary Medication (Citalopram Hydrobromide [Celexa]) 20 mg PO BID [facility] Sodium Chloride (Saline Flush) 10 ml FLUSH ASDIRECTED PRN PRN Reason: Keep Vein Open Last Admin: 03/02/18 09:09 Dose: 10 ml Ticagrelor (Brilinta) 90 mg PO BID [facility] Zolpidem Tartrate (Ambien) 5 mg PO BEDTIME PRN PRN Reason: Sleep Assessment/Plan Comment:: Admit for observation for COPD exacerbation. Due to comorbidity she'll be started on Augmentin she has a high risk for bacterial pneumonia. Supplemental oxygen was provided and be weaned off along with steroid burst and taper. We'll see how she does with minimal interventions blood cultures are pending labs been reviewed along with physical exam with the patient. Plan of care is been discussed. Anticipate discharge 24-48 hours pending above response to medical management.
--- NOTE | 2018-03-02 12:11 | PCM.DCSUM1 ---
Discharge Summary - Hospital Course Brief History: Patient's a 68-year-old female who presented to the ER with increasing cough change in sputum production and shortness of breath. 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 No fever or chills headache neck pain sore throat difficulty swallowing chest pressure midsternal or interscapular pain. She did complain of dyspnea at rest and with exertion. Wheezing. Denied palpitations or sudden onset edema. She had not had any nausea or vomiting. Denied any dysuria hematuria flank pain pelvic pain abdominal pain black or bloody stools joint swelling or tenderness. On presentation to the ER she was found initially to have increased work of breathing with respiratory rate between 22-30 bpm O2 sats 84% on room air which came up to 92% on 3 L by nasal cannula. She was afebrile blood pressure 108/67 mmHg pulse 76. - Discharge Data Discharge Date: 03/02/18 Discharge Disposition: Home, Self-Care 01 Condition: Fair - Discharge Diagnosis/Problem(s) (1) COPD exacerbation SNOMED Code(s): 023846928 ICD Code: J44.1 - CHRONIC OBSTRUCTIVE PULMONARY DISEASE W (ACUTE) EXACERBATION Status: Acute - Patient Summary/Data Hospital Course: Admitted for observation for COPD exacerbation. Due to comorbidities, started on Augmentin due to high risk for bacterial pneumonia. Supplemental oxygen was provided and weaned off along with steroid burst and taper. Shortly resumed to baseline after roughly 12 hours and wished to be discharged home. Therefore follow-up care was scheduled and confirmed discharge on oral antibiotics steroid taper along with discussion regarding tobacco cessation as it pertains to her cardiopulmonary status likely to increase her hospitalizations in the future. Stated she would continue to work on this. Questions answered medications reviewed discussion when to follow-up or return to the ER should she have any further difficulty. - Patient Instructions Diet: Heart Healthy Diet Activity: Cough & Deep Breathe Showering/Bathing: May Shower Notify Provider of: Fever, Nausea and/or Vomiting Other/Special Instructions: INCREASE WORK OF BREATHING, CP, LIGHTHEADEDNESS OR INCREASING FATIQUE - Discharge Plan Prescriptions/Med Rec: Amoxicillin/Clavulanate K [Augmentin 875-125 MG] 1 tab PO BID #10 tablet Nitroglycerin [Nitrostat] 0.4 mg SL ASDIRECTED PRN #90 tab.sl PRN Reason: Chest Pain predniSONE [Prednisone] 40 mg PO ACBREAKFAST #10 tablet Home Medications: Home Meds Citalopram Hydrobromide [Celexa] 20 mg PO BID 01/25/15 [History] Famotidine [Pepcid] 10 mg PO BID PRN 01/25/15 [History] Gabapentin [Neurontin] 600 mg PO TID 01/25/15 [History] HYDROmorphone [Dilaudid] 1 - 2 tab PO Q3HR PRN 01/25/15 [History] Loperamide [Imodium] 2 mg PO Q6H PRN 01/25/15 [History] Ondansetron [Zofran] 8 mg PO TID PRN 01/25/15 [History] Amitriptyline [Elavil] 10 mg PO BEDTIME 01/26/15 [History] Furosemide [Lasix] 20 mg PO ASDIRECTED PRN 11/04/16 [History] Pazopanib HCl [Votrient] 600 mg PO DAILY 11/04/16 [History] Amoxicillin/Clavulanate K [Augmentin 875-125 MG] 1 tab PO BID #10 tablet [Rx] Carvedilol [Coreg] 12.5 mg PO BID 03/02/18 [History] Diphenoxylate HCl/Atropine [Lomotil] 1 tab PO Q4H PRN 03/02/18 [History] HYDROmorphone [Dilaudid] 4 mg PO Q3H PRN tablet 03/02/18 [Rx] Ibuprofen 400 mg PO DAILY PRN 03/02/18 [History] Lisinopril [Prinivil] 5 mg PO DAILY 03/02/18 [History] Nitroglycerin [Nitrostat] 0.4 mg SL ASDIRECTED PRN #90 tab.sl 03/02/18 [Rx] Ticagrelor [Brilinta] 90 mg PO BID 03/02/18 [History] atorvaSTATin [Lipitor] 20 mg PO DAILY 03/02/18 [History] predniSONE [Prednisone] 40 mg PO ACBREAKFAST #10 tablet 03/02/18 [Rx] Referrals: Ronnie Oliva MD [Primary Care Provider] - (7 -10 DAYS POST COPD EXACERBATION) - Discharge Summary/Plan Comment DC Time >30 min.: Yes - General Info Date of Service: 03/02/18 Functional Status: Reports: Tolerating Diet, Urinating, Incentive Spirometry - Review of Systems Systems Review Comment: Tells me breathing is improved, night sweats or chills, tolerating diet, strength improved, overall well-being improved. Denies chest pain pressure lightheadedness or dizziness on standing or ambulating with her wheeled walker. Urinating without difficulty. The joint swelling or tenderness. - Patient Data Vitals - Most Recent: Last Vital Signs Temp 97.4 F 03/02/18 08:27 Pulse 74 03/02/18 11:00 Resp 18 03/02/18 08:27 BP 115/75 03/02/18 08:27 Pulse Ox 93 L 03/02/18 11:02 Weight - Most Recent: 48.591 kg I&O - Last 24 hours: Intake & Output 03/01/18 03/02/18 03/02/18 22:59 06:59 14:59 Intake Total 650 450 Output Total 225 125 Balance 425 325 Lab Results - Last 24 hrs: Laboratory Results - last 24 hr 03/02/18 03/02/18 03/02/18 Range/Units 00:58 00:58 00:58 WBC 8.5 (4.5-12.0) X10-3/uL RBC 5.24 H (3.23-5.20) x10(6)uL Hgb 17.6 H D (11.5-15.5) g/dL Hct 52.7 H D (30.0-51.3) % MCV 100.7 H (80-96) fL MCH 33.6 (27.7-33.6) pg MCHC 33.4 (32.2-35.4) g/dL RDW 13.7 (11.5-15.5) % Plt Count 192 (125-369) X10(3)uL MPV 9.2 (7.4-10.4) fL Neut % (Auto) 59.7 (46-82) % Lymph % (Auto) 30.0 (13-37) % [place] % (Auto) 8.2 (4-12) % Eos % (Auto) 1 (1.0-5.0) % Baso % (Auto) 1 (0-2) % Neut # (Auto) 5.0 (1.6-8.3) # Lymph # (Auto) 2.6 (0.6-5.0) # [place] # (Auto) 0.7 (0.0-1.3) # Eos # (Auto) 0.1 (0.0-0.8) # Baso # (Auto) 0.1 (0.0-0.2) # PT 9.7 (8.7-11.1) INR 0.96 (0.89-1.13) Sodium 138 (135-145) mmol/L Potassium 3.8 (3.5-5.3) mmol/L Chloride 99 L (100-110) mmol/L Carbon Dioxide 32 (21-32) mmol/L BUN 20 H (7-18) mg/dL Creatinine 0.7 (0.55-1.02) mg/dL Est Cr Clr Drug Dosing TNP Estimated GFR (MDRD) > 60 (>60) BUN/Creatinine Ratio 28.6 H (9-20) Glucose 98 (80-116) mg/dL Lactic Acid (0.4-2.2) mmol/L Calcium 9.4 (8.6-10.2) mg/dL Troponin I (<0.017-0.056) ng/mL C-Reactive Protein (0.5-0.9) mg/dL NT-Pro-B Natriuret Pep (<=125) pg/mL Urine Color (YELLOW) Urine Appearance (CLEAR) Urine pH (5.0-6.5) Ur Specific Oblong (1.010-1.025) Urine Protein (NEGATIVE) mg/dL Urine Glucose (UA) (NEGATIVE) mg/dL Urine Ketones (NEGATIVE) mg/dL Urine Occult Blood (NEGATIVE) Urine Nitrite (NEGATIVE) Urine Bilirubin (NEGATIVE) Urine Urobilinogen (NEGATIVE) mg/dL Ur Leukocyte Esterase (NEGATIVE) Urine RBC (0) Urine WBC (0) Ur Squamous Epith Cells (NS,R,O) Urine Bacteria (NS) 03/02/18 03/02/18 03/02/18 Range/Units 00:58 00:58 01:05 WBC (4.5-12.0) X10-3/uL RBC (3.23-5.20) x10(6)uL Hgb (11.5-15.5) g/dL Hct (30.0-51.3) % MCV (80-96) fL MCH (27.7-33.6) pg MCHC (32.2-35.4) g/dL RDW (11.5-15.5) % Plt Count (125-369) X10(3)uL MPV (7.4-10.4) fL Neut % (Auto) (46-82) % Lymph % (Auto) (13-37) % [place] % (Auto) (4-12) % Eos % (Auto) (1.0-5.0) % Baso % (Auto) (0-2) % Neut # (Auto) (1.6-8.3) # Lymph # (Auto) (0.6-5.0) # [place] # (Auto) (0.0-1.3) # Eos # (Auto) (0.0-0.8) # Baso # (Auto) (0.0-0.2) # PT (8.7-11.1) INR (0.89-1.13) Sodium (135-145) mmol/L Potassium (3.5-5.3) mmol/L Chloride (100-110) mmol/L Carbon Dioxide (21-32) mmol/L BUN (7-18) mg/dL Creatinine (0.55-1.02) mg/dL Est Cr Clr Drug Dosing Estimated GFR (MDRD) (>60) BUN/Creatinine Ratio (9-20) Glucose (80-116) mg/dL Lactic Acid 0.8 (0.4-2.2) mmol/L Calcium (8.6-10.2) mg/dL Troponin I < 0.017 L (<0.017-0.056) ng/mL C-Reactive Protein 0.2 L (0.5-0.9) mg/dL NT-Pro-B Natriuret Pep 774 H (<=125) pg/mL Urine Color (YELLOW) Urine Appearance (CLEAR) Urine pH (5.0-6.5) Ur Specific Oblong (1.010-1.025) Urine Protein (NEGATIVE) mg/dL Urine Glucose (UA) (NEGATIVE) mg/dL Urine Ketones (NEGATIVE) mg/dL Urine Occult Blood (NEGATIVE) Urine Nitrite (NEGATIVE) Urine Bilirubin (NEGATIVE) Urine Urobilinogen (NEGATIVE) mg/dL Ur Leukocyte Esterase (NEGATIVE) Urine RBC (0) Urine WBC (0) Ur Squamous Epith Cells (NS,R,O) Urine Bacteria (NS) 03/02/18 Range/Units 02:30 WBC (4.5-12.0) X10-3/uL RBC (3.23-5.20) x10(6)uL Hgb (11.5-15.5) g/dL Hct (30.0-51.3) % MCV (80-96) fL MCH (27.7-33.6) pg MCHC (32.2-35.4) g/dL RDW (11.5-15.5) % Plt Count (125-369) X10(3)uL MPV (7.4-10.4) fL Neut % (Auto) (46-82) % Lymph % (Auto) (13-37) % [place] % (Auto) (4-12) % Eos % (Auto) (1.0-5.0) % Baso % (Auto) (0-2) % Neut # (Auto) (1.6-8.3) # Lymph # (Auto) (0.6-5.0) # [place] # (Auto) (0.0-1.3) # Eos # (Auto) (0.0-0.8) # Baso # (Auto) (0.0-0.2) # PT (8.7-11.1) INR (0.89-1.13) Sodium (135-145) mmol/L Potassium (3.5-5.3) mmol/L Chloride (100-110) mmol/L Carbon Dioxide (21-32) mmol/L BUN (7-18) mg/dL Creatinine (0.55-1.02) mg/dL Est Cr Clr Drug Dosing Estimated GFR (MDRD) (>60) BUN/Creatinine Ratio (9-20) Glucose (80-116) mg/dL Lactic Acid (0.4-2.2) mmol/L Calcium (8.6-10.2) mg/dL Troponin I (<0.017-0.056) ng/mL C-Reactive Protein (0.5-0.9) mg/dL NT-Pro-B Natriuret Pep (<=125) pg/mL Urine Color Yellow (YELLOW) Urine Appearance Clear (CLEAR) Urine pH 5.0 (5.0-6.5) Ur Specific Oblong 1.015 (1.010-1.025) Urine Protein Negative (NEGATIVE) mg/dL Urine Glucose (UA) Normal (NEGATIVE) mg/dL Urine Ketones Negative (NEGATIVE) mg/dL Urine Occult Blood Moderate H (NEGATIVE) Urine Nitrite Negative (NEGATIVE) Urine Bilirubin Negative (NEGATIVE) Urine Urobilinogen Normal (NEGATIVE) mg/dL Ur Leukocyte Esterase Negative (NEGATIVE) Urine RBC 0-5 (0) Urine WBC 0-5 (0) Ur Squamous Epith Cells Few H (NS,R,O) Urine Bacteria Few H (NS) Med Orders - Current: Current Medications Albuterol (Proventil Neb Soln) 2.5 mg NEB Q4H PRN PRN Reason: q4h every 4 hours while a wake Last Admin: 03/02/18 04:58 Dose: 2.5 mg Amitriptyline HCl (Elavil) 10 mg PO BEDTIME [facility] Amoxicillin/Clavulanate Potassium (Augmentin 875 Mg/125 Mg) 1 tab PO BID [facility] Stop: 03/08/18 21:01 Last Admin: 03/02/18 10:47 Dose: 1 tab Atorvastatin Calcium (Lipitor) 20 mg PO DAILY [facility] Last Admin: 03/02/18 10:46 Dose: 20 mg Carvedilol (Coreg) 12.5 mg PO BID [facility] Last Admin: 03/02/18 10:46 Dose: 12.5 mg Citalopram Hydrobromide (Celexa) 20 mg PO BID [facility] Last Admin: 03/02/18 10:46 Dose: 20 mg Diphenoxylate HCl/Atropine (Lomotil 0.025-2.5 Mg) 1 tab PO Q4H PRN PRN Reason: Diarrhea Famotidine (Pepcid) 10 mg PO BID PRN PRN Reason: Heartburn Furosemide (Lasix) 20 mg PO ASDIRECTED PRN PRN Reason: Edema Gabapentin (Neurontin) 600 mg PO TID [facility] Last Admin: 03/02/18 10:47 Dose: 600 mg Hydromorphone HCl (Dilaudid) 4 mg PO Q3H PRN PRN Reason: cancer and phantom pain Last Admin: 03/02/18 08:41 Dose: 4 mg Sodium Chloride (Normal Saline) 250 mls @ 125 mls/hr IV ASDIRECTED [facility] Last Admin: 03/02/18 02:32 Dose: 125 mls/hr Lisinopril (Prinivil) 5 mg PO DAILY [facility] Last Admin: 03/02/18 10:47 Dose: 5 mg Loperamide HCl (Imodium) 2 mg PO Q6H PRN PRN Reason: Diarrhea Methylprednisolone Sodium Succinate (Solu-Medrol) 125 mg IVPUSH Q8H [facility] Last Admin: 03/02/18 08:42 Dose: 125 mg Miscellaneous Information (Remove Patch) 1 ea TRDERM BEDTIME PRN PRN Reason: NICOTINE PATCH Nicotine (Habitrol) 14 mg TRDERM DAILY PRN PRN Reason: nicotine supplement Nitroglycerin (Nitrostat) 0.4 mg SL ASDIRECTED PRN PRN Reason: Chest Pain Sodium Chloride (Saline Flush) 10 ml FLUSH ASDIRECTED PRN PRN Reason: Keep Vein Open Last Admin: 03/02/18 09:09 Dose: 10 ml Ticagrelor (Brilinta) 90 mg PO BID [facility] Last Admin: 03/02/18 10:46 Dose: 90 mg Discontinued Medications Acetaminophen (Tylenol) 650 mg PO Q4H PRN PRN Reason: Pain (Mild 1-3)/fever Albuterol (Proventil Neb Soln) 2.5 mg NEB Q2H PRN PRN Reason: Shortness Of Breath/wheezing Albuterol/Ipratropium (Duoneb 3.0-0.5 Mg/3 Ml) 3 ml NEB ONETIME ONE Stop: 03/02/18 00:41 Last Admin: 03/02/18 00:53 Dose: 3 ml Docusate Sodium (Colace) 100 mg PO BID PRN PRN Reason: Constipation Enoxaparin Sodium (Lovenox) 30 mg SUBCUT Q24H [facility] Last Admin: 03/02/18 10:48 Dose: Not Given Sodium Chloride (Normal Saline) 1,000 mls @ 125 mls/hr IV ASDIRECTED [facility] Lactated Ringer's (Ringers, Lactated) 1,000 mls @ 125 mls/hr IV ASDIRECTED [facility] Methylprednisolone Sodium Succinate (Solu-Medrol) 125 mg IVPUSH ONETIME ONE Stop: 03/02/18 00:42 Last Admin: 03/02/18 01:06 Dose: 125 mg Methylprednisolone Sodium Succinate (Solu-Medrol) 125 mg IVPUSH Q8H FILOMENA Last Admin: 03/02/18 03:20 Dose: Not Given Zolpidem Tartrate (Ambien) 5 mg PO BEDTIME PRN PRN Reason: Sleep - Exam Physical Findings Comments:: General Appearance: Alert, sitting edge of her bed dressed and ready to go home. respirations unlabored, pleasant and speaking complete sentences. Neck: Normal Inspection, Supple, Non-Tender no thyromegaly. trachea midline Respiratory/Chest: Decreased Breath Sounds, however no accessory muscle use. prolonged expiration. Cardiovascular: Normal Peripheral Pulses, Regular Rate, Rhythm, No Edema, No Gallop, No JVD GI/Abdominal: Normal Bowel Sounds, Soft, Non-Tender, No Organomegaly, No Distention, No Abnormal Bruit Back Exam: Normal Inspection, Full Range of Motion Extremities: Other (amputated R lower extremity due to mets) Neurological: Alert, Oriented Psychiatric: Normal Affect, Normal Mood Skin Exam: Warm, Dry, Normal Color, No Rash
--- NOTE | 2018-03-02 13:47 | CR ---
INDICATION: Short of breath. CHEST: Portable AP upright view of the chest 03/02/[address] scan from 12/30/2014 and portable chest from 01/26/2015. The mass in the right upper lateral lung field appears to have increased in size significantly, from a maximum of approximately 22 mm to approximately 37 mm on the current study. Findings remain compatible with COPD, ASD aorta, with normal heart size and shape. Port-A-Cath is noted in place with tip in adequate position. Overlying EKG leads are noted. A definite acute abnormality was not seen. IMPRESSION: 1. No definite acute process. 2. Increasing size of mass in the upper lateral lung field on the right. 3. COPD. 4. ASD aorta. 5. Port-A-Cath in place. MTDD
[2018-03-02] MEDS ORDERED: AMITRIPTYLINE 10 MG PO SCH (21:00)
== END 2018-03-02 13:35 | disposition home or self-care (01) ==
LOC: FB.ED 00:31 → FB.MS 02:00
PROVIDERS: ADMIT Family Medicine; ATTEND Family Medicine
DX: J44.1 Chronic obstructive pulmonary disease with (acute) exacerbation (principal); K21.9 Gastro-esophageal reflux disease without esophagitis; F32.9 Major depressive disorder, single episode, unspecified; I25.2 Old myocardial infarction; Z79.2 Long term (current) use of antibiotics; Z79.899 Other long term (current) drug therapy; Z88.8 Allergy status to other drugs, medicaments and biological substances; F17.210 Nicotine dependence, cigarettes, uncomplicated
CPT/HCPCS: 36415; 71045; 80048; 81001; 83605; 83880; 84484; 85025; 85610; 86140; 87040; 93005; 94150; 94640; 96374; 99285; A9270; J2930; J7050; J7620

== ENCOUNTER 2018-03-13 07:19 | Emergency (ER) | payer MEDICARE, OTHER ==
[2018-03-13 07:42] VITALS: BP 108/74
[2018-03-13] MEDS ORDERED: Sodium Chloride 0.9% 1,000 ML IV ONE (07:57)
[2018-03-13] MEDS ORDERED: Albuterol/Ipratropium 3.0-0.5 MG/3 ML Neb Soln NEB ONE (08:40)
--- NOTE | 2018-03-13 12:34 | CR ---
INDICATION: Short of breath, COPD, exacerbation. CHEST: AP upright portable view of the chest 03/13/2018 was compared with 03/[address] scan from 06/07/2015, again revealing a mass density in the right upper lateral lung field, compatible with the mass seen on previous CT. Port-A-Cath remains in place. Overlying EKG leads are noted. The heart did not appear enlarged. The aorta is slightly tortuous with calcification in the arch. No new acute process was identified - no significant interval change is noted compared with 03/02/2018. Findings remain compatible with COPD and mild pulmonary fibrosis. MTDD
--- NOTE | 2018-03-17 13:54 | ER ---
DATE SEEN: 03/13/2018 TIME SEEN: The patient was seen at 0745 hours. 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 She has been seen by Dr. Oliva 2 days ago and not found to have infection. Two weeks ago, seen and started on prednisone and antibiotic, thought possibly to have pneumonia. She came in today because she is not better. She has significant history of having a port in the left chest, which is used for administration of medications and/or chemotherapy drugs, currently not receiving chemotherapy drugs, but when she has, she uses lidocaine on that. She has used Votrient for her sarcoma, it is an oral chemotherapy tablet. She gets intermittent therapeutic phlebotomies because of increased hemoglobin hemoconcentration. 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 No previous history of myocardial infarction. REVIEW OF SYSTEMS: HEENT: Denies headache, compromised vision, or decreased hearing. She does wear glasses. CARDIORESPIRATORY: As noted above. No chest pain. No rhythm disturbances. GI: As noted above. No diarrhea, constipation, blood in the stool, black tarry stool, change of bowels. She has mild infrequent potential urinary incontinence, wears Attends, but she has been noted to have loose stools for the last 3 weeks. She has had loose stools on and off after she had the bowel resection. MUSCULOSKELETAL: As noted above. She has absent right leg, and she walks infrequently with a walker with her left leg. It is difficult for her to get around, so she rides in a wheelchair. NEURO: No history of seizures or stroke. MEDICATIONS: 1. Aspirin 81 mg daily. 2. Carvedilol 12.5 mg b.i.d. 3. Amitriptyline for phantom pain and also sleep, 10 mg at bedtime. 4. Citalopram (Celexa) 40 mg daily. 5. Lasix 20 mg daily. 6. Pepcid 10 mg b.i.d. ([id number]). 7. Lomotil p.r.n. q.4 hours. 8. Dilaudid 1 to 2 tablets p.r.n. phantom pain. 9. Neurontin 600 mg t.i.d. 10.Lisinopril 5 mg daily. 11.Ibuprofen 400 mg daily. 12.Dilaudid 4 mg p.r.n. 13.Brilinta 90 mg b.i.d. 14.Pazopanib (Votrient) chemotherapy agent 600 mg daily. 15.Nitroglycerin p.r.n. 16.Imodium 2 mg p.r.n. 17.Atorvastatin 20 mg daily. PHYSICAL EXAMINATION: VITAL SIGNS: Blood pressure 108/74, respirations 23, oxygen saturation 97, O2 rate 3 L. Pulse 66, temperature 37.1 degrees centigrade. IMAGING: Chest x-ray pending. EKG, normal sinus rhythm, 62, old anteroseptal myocardial infarction with poor R - wave progression and large Q-waves in V1, V2, and V3. Trace ST elevation. No suggestion of NH. Chest x-ray unchanged from previous chest x-ray with the port in the left anterior chest. There is mild fibrosis. No suggestion of new infiltrate. LABORATORY FINDINGS: Hemoglobin 17.5, elevated hematocrit 51.9, MCV 100, MCHC and lymphocytes 3600, PMNs 56, and D-dimer 278. Troponin less than 0.017. Complete metabolic panel is normal, except for mild elevation of AST and ALT secondary to use of Votrient. Urinalysis, moderate bacteria and moderate mucus, many squamous, last specimen now compared and suggests asymptomatic bacteriuria. She has not had any symptoms. Does not require therapeutic intervention. Her albumin is low at 3.1, and her calcium is low at 8.9, which means her calculated calcium on the basis of the hypoalbuminemia is 9.62 mg/dL (which is still within the normal calcific range, normal 8.6-10.2). ASSESSMENT: 1. Shortness of breath, etiology indeterminate, probably secondary to chronic obstructive lung disease with possible bronchospasm and/or transient mucus inspissated plug that caused difficulty breathing. 2. Anxiety secondary to shortness of breath. 3. She has proven that her oxygen saturation drops down to 86%. Her pO2 was 62, pH was 7.42, pCO2 of 42, bicarb 26, and oxygen saturation 91%. OTHER DIAGNOSES: 1. Status post sarcoma resection, right lower leg, with total amputation of right lower leg and ongoing chemotherapy with Votrient (Pazopanib hydrochloride). 2. Phantom leg pain requiring medication. 3. Depression. 4. Chronic pain secondary to phantom leg pain. 5. Coronary artery disease. 6. Hypertension, treated. 7. Chronic obstructive pulmonary disease. 8. Smoker, 40 years ago. The patient will need to use a walker and also need to have oxygen at home. She is currently in a chronic stable state. She had a history of diarrhea, last 3 weeks, it is not unusual to have loose stool because she had colon resection. It is possible that she could have Clostridium difficile from her previous antibiotic treatment two weeks ago for bronchitis/pulmonary infection. She also has a tremor, hysterectomy, appendectomy, and a smoker 40 years ago. An EKG demonstrated old anteroseptal myocardial infarction with a poor R-wave progression across the anterior precordials and large Q-waves in V1, V2, and V3. The patient is dismissed to follow up with her doctor in a week. Continue to walk. I did urge her to continue walking, even though she only has one leg because without walking, she "will be walking faster to the care home." She is aware of this and is going to work on that part, increasing upper and lower body strength. She is also going to have Physical Therapy visit her, and an order has been placed for physical therapy. She was dismissed late in the afternoon because there was a significant critical code that involved a large number of hospital staff to resuscitate a patient. /[id number] SRAVANI/JOS FARAH
== END 2018-03-13 12:30 | disposition home or self-care (01) ==
LOC: FB.ED 07:19
DX: R06.02 Shortness of breath (principal); F41.9 Anxiety disorder, unspecified; Z98.890 Other specified postprocedural states; Z89.511 Acquired absence of right leg below knee; Z79.82 Long term (current) use of aspirin; Z79.899 Other long term (current) drug therapy
CPT/HCPCS: 36415; 36600; 71045; 80053; 81001; 82803; 84484; 85025; 85379; 87040; 93005; 94640; 96360; 96361; 99285; J7040; J7620

== ENCOUNTER 2020-08-24 18:23 | Emergency (ER) | payer MEDICARE, OTHER ==
--- NOTE | 2020-08-24 18:54 | EDM.PDOC ---
ED HPI GENERAL MEDICAL PROBLEM - General Chief Complaint: Chest Pain Stated Complaint: PAIN Time Seen by Provider: 08/24/20 18:40 Source of Information: Reports: Patient, Old Records History Limitations: Reports: No Limitations - History of Present Illness INITIAL COMMENTS - FREE TEXT/NARRATIVE: Ny Torres comes into [facility] ED with sxs of R precordial chest pain since awakening this am. Pain is deep, initially constant for about 2 hours, and now more intermittent. Pain is nonradiating, and not associated with diaphoresis, nausea, GERD, or palpitations. She has a PMH of COPD, on supplemental 02, and does not feel any additional SOB with current sxs. She took TNG this early am for these sxs with no change. - Related Data Allergies Allergy/AdvReac Type Severity Reaction Status Date / Time fentanyl Allergy Delusions Verified 03/02/18 01:40 Seasonal Allergy Sneezing Uncoded 08/24/20 18:53 Home Meds: Home Meds Citalopram Hydrobromide [Celexa] 40 mg PO DAILY 01/25/15 [History] Famotidine [Pepcid] 10 mg PO BID PRN 01/25/15 [History] Gabapentin [Neurontin] 600 mg PO TID 01/25/15 [History] HYDROmorphone [Dilaudid] 1 - 2 tab PO Q3HR PRN 01/25/15 [History] Loperamide [Imodium] 2 mg PO Q6H PRN 01/25/15 [History] Ondansetron [Zofran] 8 mg PO TID PRN 01/25/15 [History] Amitriptyline [Elavil] 10 mg PO BEDTIME 01/26/15 [History] Furosemide [Lasix] 20 mg PO ASDIRECTED PRN 11/04/16 [History] Pazopanib HCl [Votrient] 600 mg PO DAILY 11/04/16 [History] Diphenoxylate HCl/Atropine [Lomotil] 1 tab PO Q4H PRN 03/02/18 [History] HYDROmorphone [Dilaudid] 4 mg PO Q3H PRN tablet 03/02/18 [Rx] Ibuprofen 400 mg PO DAILY PRN 03/02/18 [History] Nitroglycerin [Nitrostat] 0.4 mg SL ASDIRECTED PRN #90 tab.sl 03/02/18 [Rx] Ticagrelor [Brilinta] 90 mg PO BID 03/02/18 [History] atorvaSTATin [Lipitor] 20 mg PO DAILY 03/02/18 [History] carvediloL [Coreg] 12.5 mg PO BID 03/02/18 [History] lisinopriL [Prinivil] 5 mg PO DAILY 03/02/18 [History] Albuterol/Ipratropium [DuoNeb 3.0-0.5 MG/3 ML] 3 ml .XX ASDIRECTED PRN #1 box 03/13/18 [Rx] Aspirin 81 mg PO DAILY 03/13/18 [History] Past Medical History HEENT History: Reports: Impaired Vision, Other (See Below) Cardiovascular History: Reports: [place], Stents Respiratory History: Reports: Pneumonia, Recurrent Other Respiratory History: Emphysema Gastrointestinal History: Reports: GERD Musculoskeletal History: Reports: Fracture, Osteoarthritis Psychiatric History: Reports: Depression Hematologic History: Reports: Polycythemia Oncologic (Cancer) History: Reports: Bone, Metastatic - Past Surgical History Female Surgical History: Reports: Hysterectomy, Other (See Below) Social & Family History - Family History Family Medical History: Unobtainable - Caffeine Use Caffeine Use: Reports: Coffee Other Caffeine Use: 3-4 cups daily ED ROS GENERAL - Review of Systems Review Of Systems: See Below Constitutional: Reports: Malaise HEENT: Reports: No Symptoms Respiratory: Reports: No Symptoms Cardiovascular: Reports: Chest Pain Endocrine: Reports: No Symptoms GI/Abdominal: Reports: No Symptoms : Reports: No Symptoms Musculoskeletal: Reports: No Symptoms Skin: Reports: No Symptoms Neurological: Reports: No Symptoms Psychiatric: Reports: No Symptoms Hematologic/Lymphatic: Reports: No Symptoms ED EXAM, GENERAL - Physical Exam Exam: See Below Exam Limited By: No Limitations General Appearance: Alert, WD/WN, No Apparent Distress Eye Exam: Bilateral Eye: EOMI, Normal Inspection, PERRL Ears: Normal External Exam Nose: Normal Inspection Throat/Mouth: Normal Inspection, Normal Oropharynx, No Airway Compromise Head: Normocephalic Neck: Normal Inspection, Supple, Non-Tender Respiratory/Chest: Chest Non-Tender, Decreased Breath Sounds, Crackles, Prolonged Expiration Cardiovascular: Regular Rate, Rhythm, No Edema, No Murmur GI/Abdominal: Normal Bowel Sounds, Soft, Non-Tender, No Organomegaly, No Distention, No Mass (Female) Exam: Deferred Rectal (Female) Exam: Deferred Back Exam: Normal Inspection Extremities: Other (R leg surgically absent at pelvis) Neurological: Alert, Oriented, CN II-XII Intact, Normal Cognition, No Motor/Sensory Deficits Psychiatric: Normal Affect, Normal Mood Skin Exam: Warm, Dry, Intact, No Rash, Pallor Lymphatic: No Adenopathy Course - Vital Signs Last Recorded V/S: Last Vital Signs Temp Pulse 80 08/24/20 18:25 Resp 17 08/24/20 18:25 BP 119/73 08/24/20 18:25 Pulse Ox 100 08/24/20 18:25 - Orders/Labs/Meds Orders: Active Orders 24 hr Category Date Time Status EKG Documentation Completion [RC] ASDIRECTED Care 08/24/20 18:49 Active Chest 1V Frontal [CR] Stat Exams 08/24/20 18:47 Ordered CBC WITH AUTO DIFF [HEME] Stat Lab 08/24/20 18:47 Ordered COMPREHENSIVE METABOLIC PN,CMP [CHEM] Stat Lab 08/24/20 18:47 Ordered D-DIMER QUANTITATIVE [COAG] Stat Lab 08/24/20 18:47 Ordered TROPONIN I [CHEM] Stat Lab 08/24/20 18:47 Ordered EKG 12 Lead [EK] Routine Ther 08/24/20 18:48 Ordered Departure - Departure Forms: ED Department Discharge Sepsis Event Note (ED) - Focused Exam Vital Signs: Vital Signs Pulse Resp BP Pulse Ox 08/24/20 18:25 80 17 119/73 100 - My Orders Last 24 Hours: My Active Orders 08/24/20 18:47 Chest 1V Frontal [CR] Stat CBC WITH AUTO DIFF [HEME] Stat COMPREHENSIVE METABOLIC PN,CMP [CHEM] Stat D-DIMER QUANTITATIVE [COAG] Stat TROPONIN I [CHEM] Stat 08/24/20 18:48 EKG 12 Lead [EK] Routine 08/24/20 18:49 EKG Documentation Completion [RC] ASDIRECTED - Assessment/Plan Last 24 Hours: My Active Orders 08/24/20 18:47 Chest 1V Frontal [CR] Stat CBC WITH AUTO DIFF [HEME] Stat COMPREHENSIVE METABOLIC PN,CMP [CHEM] Stat D-DIMER QUANTITATIVE [COAG] Stat TROPONIN I [CHEM] Stat 08/24/20 18:48 EKG 12 Lead [EK] Routine 08/24/20 18:49 EKG Documentation Completion [RC] ASDIRECTED
[2020-08-25 02:01] VITALS: BP 123/68; PULSE 71
--- NOTE | 2020-08-25 04:15 | ER ---
DATE SEEN: 08/24/2020 CHIEF COMPLAINT: Chest pain. HISTORY OF PRESENT ILLNESS: Ny is a 70-year-old female who was brought to the walk-in clinic with chest pain that started about 3 in the morning, right- sided, sharp, on and off. Nothing seems to help. Moderate to severe. No shortness of breath or cough or fever. PAST MEDICAL HISTORY: She has a history of colon cancer, coronary artery disease with 2 stents in 2017. She also has a history of tobacco abuse and COPD. REVIEW OF SYSTEMS: No nausea or vomiting. No weakness. No leg swelling. ALLERGIES: Please see Epic. PHYSICAL EXAMINATION: GENERAL: Upon exam, she is not in distress. VITAL SIGNS: Normal. ENT: Normal. Chest has decreased breath sounds. CARDIOVASCULAR: S1 and S2 normal. EXTREMITIES: Amputation. MENTAL STATUS: Alert. LABORATORY DATA: Troponin, D-dimer, CBC, CMP all negative. Chest x-ray showed a cavity in the right upper lobe, which is chronic. EKG was normal sinus rhythm. IMPRESSION: Atypical chest pain. PLAN: Reassurance. I advised her to see Dr. Oliva tomorrow. Return to the ED with any worsening symptoms. /[id number] [place]
== END 2020-08-24 21:40 | disposition home or self-care (01) ==
LOC: FB.ED 18:23
DX: R07.89 Other chest pain (principal); J44.9 Chronic obstructive pulmonary disease, unspecified; I25.10 Atherosclerotic heart disease of native coronary artery without angina pectoris; M19.90 Unspecified osteoarthritis, unspecified site; K21.9 Gastro-esophageal reflux disease without esophagitis; F32.9 Major depressive disorder, single episode, unspecified; F17.200 Nicotine dependence, unspecified, uncomplicated; Z95.5 Presence of coronary angioplasty implant and graft; Z88.8 Allergy status to other drugs, medicaments and biological substances; Z91.048 Other nonmedicinal substance allergy status; Z79.899 Other long term (current) drug therapy; Z79.82 Long term (current) use of aspirin
CPT/HCPCS: 36415; 71045; 80053; 84484; 85025; 85379; 93005; 93010; 99284; 99285-25

== ENCOUNTER 2020-10-23 03:37 | Emergency (ER) | payer MEDICARE, OTHER ==
--- NOTE | 2020-10-23 04:24 | EDM.PDOC ---
ED HPI GENERAL MEDICAL PROBLEM - General Stated Complaint: stroke Time Seen by Provider: 10/23/20 04:14 Source of Information: Reports: Family (The patient's daughter) History Limitations: Reports: Altered Mental Status (Patient is confused/encep halopathic and cannot provide me with any of the history.) - History of Present Illness INITIAL COMMENTS - FREE TEXT/NARRATIVE: 70-year-old female who presents to the emergency department via ambulance from her home where she lives with her daughter secondary to confusion, numbness, increasing shortness of breath, worsening cough, diarrhea and tonight with diffuse abdominal pain. According to the daughter, the patient has basically been in her home all the time except when she goes to the doctor until the when she will with her daughter to the [facility] prior to that she had been awake, alert and appropriate. She had been able to do her ADLs without any problems but while she was at the [facility], the daughter reports that she began to be confused and "seemed lost" and since that time she has had worsening confusion, worsening weakness, worsening shortness of breath and cough. She apparently has had diarrhea for the past week and that he dated her confusion. The daughter has been trying to get her to come to the emergency department but she has been refusing until tonight when she was so confused that she could not make her own decisions and so the daughter called 911 to bring her to the hospital. She is chronically on oxygen at 2 L/m via nasal cannula daughter has had to increase it to 3 L/m via nasal cannula secondary to her shortness of breath. The patient does complain of pain and her abdomen and looks quite uncomfortable but she cannot quantitate or qualitate or characterize her pain. The patient has had little po intake and then only liquids. She has not eaten for the past 5 days. She has had multiple loose stools that have not appeared to be bloody. Daughter has noted no fever. This is really only history that I can obtain and it basically is all from the patient's daughter. There are no other associated signs or symptoms. There are no other modifying factors. Onset: Other (Diarrhea times one week. Confusion for the past 5 days with shortness of breath and increasing cough.) Duration: Getting Worse Location: Reports: Abdomen Quality: Reports: Other (Cannot characterize) Severity: Moderate (to clear) Improves with: Reports: None (Really unknown) Worsens with: Reports: Other (Palpation) Context: Reports: Other (As above) Associated Symptoms: Reports: Confusion, Cough, Loss of Appetite, Shortness of Breath, Weakness Treatments SENIOR CARE SPECIALIST: Reports: Other (see below) (Think) - Related Data Allergies Allergy/AdvReac Type Severity Reaction Status Date / Time atorvastatin [From Lipitor] Allergy Muscle Verified 10/23/20 08:31 Aches fentanyl Allergy Delusions Verified 10/23/20 08:30 Seasonal Allergy Sneezing Uncoded 10/23/20 08:31 Home Meds: Home Meds HYDROmorphone [Dilaudid] 4 mg PO 0700 PRN 01/25/15 [History] Ondansetron [Zofran] 8 mg PO TID PRN 01/25/15 [History] Amitriptyline [Elavil] 20 mg PO BEDTIME 01/26/15 [History] Pazopanib HCl [Votrient] 600 mg PO DAILY 11/04/16 [History] Diphenoxylate HCl/Atropine [Lomotil] 1 tab PO QID PRN 03/02/18 [History] Nitroglycerin [Nitrostat] 0.4 mg SL ASDIRECTED PRN #90 tab.sl 03/02/18 [Rx] carvediloL [Coreg] 12.5 mg PO BID 03/02/18 [History] Aspirin 81 mg PO DAILY 03/13/18 [History] Albuterol/Ipratropium [DuoNeb 3.0-0.5 MG/3 ML] 3 ml INH Q4H PRN 10/23/20 [History] Citalopram Hydrobromide [Celexa] 40 mg PO DAILY 10/23/20 [History] Famotidine 20 mg PO DAILY 10/23/20 [History] Furosemide [Lasix] 20 mg PO Q48H 10/23/20 [History] Gabapentin [Neurontin] 100 mg PO ASDIRECTED 10/23/20 [History] Gabapentin [Neurontin] 300 mg PO ASDIRECTED 10/23/20 [History] HYDROmorphone [Dilaudid] 2 mg PO 1400,2200 10/23/20 [History] Lidocaine [Lidocare] 1 each TOP DAILY 10/23/20 [History] Oxybutynin Chloride [Ditropan Xl] 5 mg PO DAILY 10/23/20 [History] Ranitidine HCl [Ranitidine] 150 mg PO BID 10/23/20 [History] Rosuvastatin [Crestor] 10 mg PO DAILY 10/23/20 [History] Ticagrelor [Brilinta] 60 mg PO BID 10/23/20 [History] Tiotropium [Spiriva] 1 cap INH DAILY 10/23/20 [History] lisinopriL [Lisinopril] 10 mg PO DAILY 10/23/20 [History] Past Medical History HEENT History: Reports: Impaired Vision, Other (See Below) Cardiovascular History: Reports: CAD, Hypertension, CO, Stents Respiratory History: Reports: COPD, Pneumonia, Recurrent Gastrointestinal History: Reports: GERD Musculoskeletal History: Reports: Fracture, Osteoarthritis Psychiatric History: Reports: Depression Hematologic History: Reports: Polycythemia Oncologic (Cancer) History: Reports: Bone, Lung, Metastatic - Past Surgical History Female Surgical History: Reports: Hysterectomy Musculoskeletal Surgical History: Reports: Amputation (Of right lower extremity at the hip) Other Oncologic Surgeries/Procedures: Port placed Social & Family History - Family History Family Medical History: Unobtainable - Tobacco Use Tobacco Use Status *Q: Current Every Day Tobacco User - Caffeine Use Caffeine Use: Reports: Coffee Other Caffeine Use: 3-4 cups daily - Alcohol Use Alcohol Use History: No - Living Situation & Occupation Living situation: Reports: with Family (Lives with her daughter.) Occupation: Retired Social History Comment: Patient is a FULL CODE. ED ROS GENERAL - Review of Systems Review Of Systems: See Below (It should be noted that the patient cannot provide me with any of this information. Information comes from the daughter via her observation and also via the patient telling this to the daughter at various times.) Constitutional: Reports: Malaise, Weakness, Decreased Appetite HEENT: Reports: Other (Dry mouth. Has been complaining of sore mouth.) Respiratory: Reports: Shortness of Breath, Cough Cardiovascular: Reports: No Symptoms GI/Abdominal: Reports: Abdominal Pain, Diarrhea Musculoskeletal: Reports: Other (Has reported aching all over) Skin: Reports: Wound (Chronic wounds on sacral area and her right leg amputation site) Neurological: Reports: Confusion Hematologic/Lymphatic: Reports: No Symptoms Immunologic: Reports: No Symptoms ED EXAM, GENERAL - Physical Exam Exam: See Below Exam Limited By: No Limitations General Appearance: Alert, Moderate Distress, Thin, Other (Confused and disoriented.) Eye Exam: Bilateral Eye: EOMI, Normal Inspection, PERRL Ears: Normal External Exam, Hearing Grossly Normal Ear Exam: Bilateral Ear: Auricle Normal Nose: Normal Inspection, No Blood Throat/Mouth: Normal Voice, No Airway Compromise, Other (Dry mucous membranes) Head: Atraumatic, Normocephalic Neck: Normal Inspection, Supple, Non-Tender, Full Range of Motion Respiratory/Chest: Chest Non-Tender, Decreased Breath Sounds (Poor air movement throughout. It does appear to be symmetric), Rhonchi, Accessory Muscle Use, Other (Some pursed lip breathing) Cardiovascular: Normal Peripheral Pulses, Regular Rate, Rhythm, No JVD Peripheral Pulses: 2+: Radial (L), Radial (R) GI/Abdominal: No Mass, Guarding, Tender (Diffusely tender), Abnormal Bowel Sounds (Decreased bowel sounds) Rectal (Female) Exam: Heme - Stool (Stool Hemoccult tested by lab was negative.) Back Exam: No: Vertebral Tenderness Extremities: No Pedal Edema, Normal Capillary Refill, Other (Status post right lower extremity amputation at the hip.) Neurological: Alert, CN II-XII Intact, No Motor/Sensory Deficits, Confused, Disoriented Skin Exam: Warm, Dry, Wound/Incision (Chronic ulcers on room and her right lower extremity amputation site.) #1 Interpretation EKG Date: 10/23/20 Time: 04:11 Rhythm: NSR Rate (Beats/Min): 69 [place]: Normal P-Wave: Enlarged (Right atrial enlargement) QRS: Normal ST-T: Other (Biphasic T waves in anterior leads with poor R-wave progression) QT: Normal Comparison: No Change (Change from EKG performed on 08/24/2020.) Course - Vital Signs Last Recorded V/S: Last Vital Signs Temp 36.1 C 10/23/20 08:00 Pulse 52 L 10/23/20 08:00 Resp 20 10/23/20 08:00 BP 118/66 10/23/20 08:00 Pulse Ox 93 L 10/23/20 08:00 - Orders/Labs/Meds Orders: Active Orders 24 hr Category Date Time Status Insert Urinary Catheter [OM.PC] Q24H Care 10/23/20 04:45 Ordered Abdomen Pelvis w Cont [CT] Stat Exams 10/23/20 06:30 Taken Chest 1V Frontal [CR] Stat Exams 10/23/20 04:42 Taken Head wo Cont [CT] Stat Exams 10/23/20 06:30 Taken C DIFFICILE AG/TOXIN W/REFLEX [RM] Stat Lab 10/23/20 04:45 Results CLOSTRIDIUM DIFF PCR CONF [RM] Stat Lab 10/23/20 04:45 Results CULTURE BLOOD [BC] Urgent Lab 10/23/20 05:10 Received CULTURE BLOOD [BC] Urgent Lab 10/23/20 05:20 Received CULTURE URINE [RM] Stat Lab 10/23/20 05:35 Received Blood Culture x2 Reflex Set [OM.PC] Urgent Oth 10/23/20 04:42 Ordered EKG 12 Lead [EK] Routine Ther 10/23/20 04:05 Ordered Labs: Laboratory Tests 10/23/20 10/23/20 10/23/20 Range/Units 04:00 05:20 05:20 WBC 4.6 (3.0-10.3) x10-3/uL RBC 4.35 (3.60-5.20) x10(6)uL Hgb 12.1 (11.4-15.5) g/dL Hct 38.4 (34.2-48.2) % MCV 88.2 (76.7-100.5) fL MCH 27.8 (23.9-33.9) pg MCHC 31.6 L (31.9-34.8) g/dL RDW 16.3 (12.3-16.5) % Plt Count 191 (151-488) x10(3)uL MPV 8.9 (7.1-12.4) fL Neut % (Auto) 86.4 H (30.8-76.2) % Lymph % (Auto) 6.9 L (18.4-52.1) % [place] % (Auto) 6.6 (4.4-15.7) % Eos % (Auto) 0.0 L (0.6-8.1) % Baso % (Auto) 0.1 L (0.2-1.5) % Neut # (Auto) 4.0 (1.5-6.3) x10-3/uL Lymph # (Auto) 0.3 L (1.0-4.4) x10-3/uL [place] # (Auto) 0.3 (0.3-1.0) x10-3/uL Eos # (Auto) 0.0 (0.0-0.8) x10-3/uL Baso # (Auto) 0.0 (0.0-0.1) x10-3/uL PT 10.4 (9.0-11.1) sec INR 0.96 L (1.00-1.24) POC VBG pH (7.32-7.43) pH Units POC VBG pCO2 (41-51) mmHg POC VBG HCO3 (21-29) mmol/L VBG Base Excess (-2-3) mmol/L O2 Delivery Device Sodium (135-145) mmol/L Potassium (3.5-5.3) mmol/L Chloride (100-110) mmol/L Carbon Dioxide (21-32) mmol/L BUN (7-18) mg/dL Creatinine (0.55-1.02) mg/dL Est Cr Clr Drug Dosing Estimated GFR (MDRD) (>60) BUN/Creatinine Ratio (9-20) Glucose (80-116) mg/dL Lactic Acid (0.4-2.0) mmol/L Calcium (8.6-10.2) mg/dL Magnesium (1.8-2.5) mg/dL Total Bilirubin (0.1-1.3) mg/dL AST (5-25) IU/L ALT (12-36) U/L Alkaline Phosphatase (56-112) IU/L Troponin I (4.0-60.3) pg/mL C-Reactive Protein (0.5-0.9) mg/dL NT-Pro-B Natriuret Pep (<=125) pg/mL Total Protein (6.0-8.0) g/dL Albumin (3.2-4.6) g/dL Globulin g/dL Albumin/Globulin Ratio Urine Color (YELLOW) Urine Appearance (CLEAR) Urine pH (5.0-6.5) Ur Specific [place] (1.010-1.025) Urine Protein (NEGATIVE) mg/dL Urine Glucose (UA) (NORMAL) mg/dL Urine Ketones (NEGATIVE) mg/dL Urine Occult Blood (NEGATIVE) Urine Nitrite (NEGATIVE) Urine Bilirubin (NEGATIVE) Urine Urobilinogen (NEGATIVE) mg/dL Ur Leukocyte Esterase (NEGATIVE) Urine RBC (0-5) Urine WBC (0-5) Ur Squamous Epith Cells (NS,R,O) Urine Bacteria (NS) SARS-CoV-2 RNA (MANOLO) Positive H (NEGATIVE) 10/23/20 10/23/20 10/23/20 Range/Units 05:20 05:20 05:20 WBC (3.0-10.3) x10-3/uL RBC (3.60-5.20) x10(6)uL Hgb (11.4-15.5) g/dL Hct (34.2-48.2) % MCV (76.7-100.5) fL MCH (23.9-33.9) pg MCHC (31.9-34.8) g/dL RDW (12.3-16.5) % Plt Count (151-488) x10(3)uL MPV (7.1-12.4) fL Neut % (Auto) (30.8-76.2) % Lymph % (Auto) (18.4-52.1) % [place] % (Auto) (4.4-15.7) % Eos % (Auto) (0.6-8.1) % Baso % (Auto) (0.2-1.5) % Neut # (Auto) (1.5-6.3) x10-3/uL Lymph # (Auto) (1.0-4.4) x10-3/uL [place] # (Auto) (0.3-1.0) x10-3/uL Eos # (Auto) (0.0-0.8) x10-3/uL Baso # (Auto) (0.0-0.1) x10-3/uL PT (9.0-11.1) sec INR (1.00-1.24) POC VBG pH (7.32-7.43) pH Units POC VBG pCO2 (41-51) mmHg POC VBG HCO3 (21-29) mmol/L VBG Base Excess (-2-3) mmol/L O2 Delivery Device Sodium 133 L (135-145) mmol/L Potassium 4.2 (3.5-5.3) mmol/L Chloride 96 L (100-110) mmol/L Carbon Dioxide 28 (21-32) mmol/L BUN 19 H (7-18) mg/dL Creatinine 0.7 (0.55-1.02) mg/dL Est Cr Clr Drug Dosing TNP Estimated GFR (MDRD) > 60 (>60) BUN/Creatinine Ratio 27.1 H (9-20) Glucose 116 (80-116) mg/dL Lactic Acid 1.4 (0.4-2.0) mmol/L Calcium 8.9 (8.6-10.2) mg/dL Magnesium 2.0 (1.8-2.5) mg/dL Total Bilirubin 0.4 (0.1-1.3) mg/dL AST 73 H D (5-25) IU/L ALT 34 D (12-36) U/L Alkaline Phosphatase 61 (56-112) IU/L Troponin I 11.5 (4.0-60.3) pg/mL C-Reactive Protein (0.5-0.9) mg/dL NT-Pro-B Natriuret Pep (<=125) pg/mL Total Protein 7.3 (6.0-8.0) g/dL Albumin 2.1 L (3.2-4.6) g/dL Globulin 5.2 g/dL Albumin/Globulin Ratio 0.4 Urine Color (YELLOW) Urine Appearance (CLEAR) Urine pH (5.0-6.5) Ur Specific [place] (1.010-1.025) Urine Protein (NEGATIVE) mg/dL Urine Glucose (UA) (NORMAL) mg/dL Urine Ketones (NEGATIVE) mg/dL Urine Occult Blood (NEGATIVE) Urine Nitrite (NEGATIVE) Urine Bilirubin (NEGATIVE) Urine Urobilinogen (NEGATIVE) mg/dL Ur Leukocyte Esterase (NEGATIVE) Urine RBC (0-5) Urine WBC (0-5) Ur Squamous Epith Cells (NS,R,O) Urine Bacteria (NS) SARS-CoV-2 RNA (MANOLO) (NEGATIVE) 10/23/20 10/23/20 10/23/20 Range/Units 05:20 05:20 05:35 WBC (3.0-10.3) x10-3/uL RBC (3.60-5.20) x10(6)uL Hgb (11.4-15.5) g/dL Hct (34.2-48.2) % MCV (76.7-100.5) fL MCH (23.9-33.9) pg MCHC (31.9-34.8) g/dL RDW (12.3-16.5) % Plt Count (151-488) x10(3)uL MPV (7.1-12.4) fL Neut % (Auto) (30.8-76.2) % Lymph % (Auto) (18.4-52.1) % [place] % (Auto) (4.4-15.7) % Eos % (Auto) (0.6-8.1) % Baso % (Auto) (0.2-1.5) % Neut # (Auto) (1.5-6.3) x10-3/uL Lymph # (Auto) (1.0-4.4) x10-3/uL [place] # (Auto) (0.3-1.0) x10-3/uL Eos # (Auto) (0.0-0.8) x10-3/uL Baso # (Auto) (0.0-0.1) x10-3/uL PT (9.0-11.1) sec INR (1.00-1.24) POC VBG pH 7.41 (7.32-7.43) pH Units POC VBG pCO2 43 (41-51) mmHg POC VBG HCO3 27 (21-29) mmol/L VBG Base Excess 3 (-2-3) mmol/L O2 Delivery Device Nasal cannula Sodium (135-145) mmol/L Potassium (3.5-5.3) mmol/L Chloride (100-110) mmol/L Carbon Dioxide (21-32) mmol/L BUN (7-18) mg/dL Creatinine (0.55-1.02) mg/dL Est Cr Clr Drug Dosing Estimated GFR (MDRD) (>60) BUN/Creatinine Ratio (9-20) Glucose (80-116) mg/dL Lactic Acid (0.4-2.0) mmol/L Calcium (8.6-10.2) mg/dL Magnesium (1.8-2.5) mg/dL Total Bilirubin (0.1-1.3) mg/dL AST (5-25) IU/L ALT (12-36) U/L Alkaline Phosphatase (56-112) IU/L Troponin I (4.0-60.3) pg/mL C-Reactive Protein (0.5-0.9) mg/dL NT-Pro-B Natriuret Pep 706 H (<=125) pg/mL Total Protein (6.0-8.0) g/dL Albumin (3.2-4.6) g/dL Globulin g/dL Albumin/Globulin Ratio Urine Color Yellow (YELLOW) Urine Appearance Clear (CLEAR) Urine pH 6.0 (5.0-6.5) Ur Specific [place] 1.015 (1.010-1.025) Urine Protein 30 H (NEGATIVE) mg/dL Urine Glucose (UA) Normal (NORMAL) mg/dL Urine Ketones 15 H (NEGATIVE) mg/dL Urine Occult Blood Negative (NEGATIVE) Urine Nitrite Negative (NEGATIVE) Urine Bilirubin Negative (NEGATIVE) Urine Urobilinogen Normal (NEGATIVE) mg/dL Ur Leukocyte Esterase Negative (NEGATIVE) Urine RBC 0-5 (0-5) Urine WBC 0-5 (0-5) Ur Squamous Epith Cells Occasional (NS,R,O) Urine Bacteria Rare H (NS) SARS-CoV-2 RNA (MANOLO) (NEGATIVE) Meds: Medications Discontinued Medications Generic Name Dose Route Start Last Admin Trade Name Freq PRN Reason Stop Dose Admin Hydromorphone HCl 1 mg 10/23/20 06:32 10/23/20 07:13 Dilaudid IVPUSH 10/23/20 06:33 1 mg ONETIME ONE Administration Hydromorphone HCl 1 mg 10/23/20 09:18 10/23/20 09:29 Dilaudid IVPUSH 10/23/20 09:19 1 mg ONETIME ONE Administration Sodium Chloride 500 mls @ 999 mls/hr 10/23/20 04:49 10/23/20 05:15 Normal Saline IV 10/23/20 05:19 999 mls/hr .BOLUS ONE Administration Sodium Chloride 1,000 mls @ 100 mls/hr 10/23/20 05:00 10/23/20 05:50 Normal Saline IV 100 mls/hr ASDIRECTED FILOMENA Administration Sodium Chloride 500 mls @ 999 mls/hr 10/23/20 07:01 10/23/20 07:10 Normal Saline IV 10/23/20 07:31 999 mls/hr .BOLUS ONE Administration Remdesivir 200 mg/ Sodium 250 mls @ 200 mls/hr 10/23/20 08:39 10/23/20 09:20 Chloride IV 10/23/20 09:53 200 mls/hr ONETIME ONE Administration Iopamidol 100 ml 10/23/20 06:52 10/23/20 07:30 Isovue-370 (76%) IV 10/23/20 06:53 75 ml . DIRECTED ONE Administration - Radiology Interpretation Free Text/Narrative:: Portable chest x-ray shows either atelectasis or bibasilar infiltrates. No change in the right upper lobe lesion. This was per the radiologist at [facility] in [place]. - Re-Assessments/Exams Free Text/Narrative Re-Assessment/Exam: 10/23/20 05:00: Patient's COVID 19 test was positive. She does appear somewhat ill with hypoxia and evidence of dehydration and sepsis. Her labs are just being drawn right now and we are accessing her port. We will begin IV fluid resuscitation with normal saline. We will continue close monitoring. 10/23/20 06:45: Patient's labs are consistent with those having COVID 19 infection. She has a normal hemoglobin and normal electrolytes. Her CRP was elevated. Her chest x-ray does not show any definite evidence of acute pneumon ia. She does appear to be clinically dehydrated and she still has an altered mental status but no focal or lateralizing sign. She does still have pretty significant tenderness in her abdomen that is diffuse and quiet bowel sounds. I will send the patient for CT of her head and also CT of her abdomen and pelvis with IV contrast. 10/23/20 07:45: The CT scans of her head and abdomen and pelvis are completed and they have been sent to [facility] in [place] for their radiologist to read. With the patient's respiratory failure related to COVID 19 infection, her encephalopathy and her monitor dehydration, she will need admission for several oxygen, fluids, potentially IV antibiotics and IV antiviral treatment. I have informed by the charge nurse that there are no beds available at [facility]. I discussed this with the patient's daughter and able to the patient being transferred to another facility and would want me to discuss her case with the doctors at [facility] in [place]. 10/23/20 08:15: I discussed the patient's case with Dr. Truong, hospitalist at [facility] in [place], and he has agreed to accept the patient in transfer. The patient will transferred via ambulance to [facility] in [place] for direct admission. The daughter is in agreement with this plan. I did discuss Remdesivir treatment and Dr. Truong feels that that would be appropriate as well and I will initiate that treatment. The patient has pain vitally stable with a pulse of 52, a blood pressure of 118/66, respiratory rate in the lower 20s and O2 saturation of 93% on 3 L/m via nasal cannula. Her temperature has also improved to 96.9F. Departure - Departure Time of Disposition: 11:20 Disposition: DC/Tfer to [facility] 02 Condition: Fair Clinical Impression: Pneumonia due to COVID-19 virus, Moderate dehydration, Acute encephalopathy Acute and chronic respiratory failure Qualifiers: Respiratory failure complication: hypoxia Qualified Code(s): J96.21 - Acute and chronic respiratory failure with hypoxia Sacral wound Qualifiers: Encounter type: initial encounter Qualified Code(s): S31.000A - Unspecified open wound of lower back and pelvis without penetration into retroperitoneum, initial encounter Sepsis Qualifiers: Sepsis type: sepsis due to unspecified organism Sepsis acute organ dysfunction status: with acute organ dysfunction Severe sepsis acute organ dysfunction type: encephalopathy Severe sepsis shock status: without septic shock Qualified Code(s): A41.9 - Sepsis, unspecified organism - Discharge Information Referrals: Ronnie Oliva MD [Primary Care Provider] - Forms: ED Department Discharge - My Orders Last 24 Hours: My Active Orders 10/23/20 04:05 EKG 12 Lead [EK] Routine 10/23/20 04:42 Chest 1V Frontal [CR] Stat Blood Culture x2 Reflex Set [OM.PC] Urgent 10/23/20 04:45 Insert Urinary Catheter [OM.PC] Q24H C DIFFICILE AG/TOXIN W/REFLEX [RM] Stat CLOSTRIDIUM DIFF PCR CONF [RM] Stat 10/23/20 05:10 CULTURE BLOOD [BC] Urgent 10/23/20 05:20 CULTURE BLOOD [BC] Urgent 10/23/20 05:35 CULTURE URINE [RM] Stat 10/23/20 06:30 Abdomen Pelvis w Cont [CT] Stat Head wo Cont [CT] Stat - Assessment/Plan Last 24 Hours: My Active Orders 10/23/20 04:05 EKG 12 Lead [EK] Routine 10/23/20 04:42 Chest 1V Frontal [CR] Stat Blood Culture x2 Reflex Set [OM.PC] Urgent 10/23/20 04:45 Insert Urinary Catheter [OM.PC] Q24H C DIFFICILE AG/TOXIN W/REFLEX [RM] Stat CLOSTRIDIUM DIFF PCR CONF [RM] Stat 10/23/20 05:10 CULTURE BLOOD [BC] Urgent 10/23/20 05:20 CULTURE BLOOD [BC] Urgent 10/23/20 05:35 CULTURE URINE [RM] Stat 10/23/20 06:30 Abdomen Pelvis w Cont [CT] Stat Head wo Cont [CT] Stat
[2020-10-23] MEDS ORDERED: Sodium Chloride 0.9% 500 ML IV ONE ×2 (04:49→07:01)
[2020-10-23] MEDS ORDERED: Sodium Chloride 0.9% 1,000 ML IV SCH (05:00)
[2020-10-23 05:51] LABS: HCO3 VENOUS,POC 27 mmol/L (21-29); PCO2 VENOUS,POC 43 mmHg (41-51); PH VENOUS,POC 7.41 pH Units (7.32-7.43)
[2020-10-23 05:52] LABS: BASE EXCESS VENOUS,POC 3 mmol/L (-2-3)
[2020-10-23] MEDS ORDERED: HYDROmorphone 2 MG/ML SDV IVPUSH ONE ×2 (06:32→09:18)
[2020-10-23] MEDS ORDERED: Iopamidol 755 Mg/ML 100 ML Bottle IV ONE (06:52)
[2020-10-23] MEDS ORDERED: REMDESIVIR 200 MG in Sodium Chloride 0.9% 250 ML IV ONE (08:39)
[2020-10-23 08:50] VITALS: BP 118/66; PULSE 52
== END 2020-10-23 11:20 ==
LOC: FB.ED 03:37
DX: U07.1 COVID-19 (principal); A41.89 Other specified sepsis; J12.89 Other viral pneumonia; R65.20 Severe sepsis without septic shock; J96.01 Acute respiratory failure with hypoxia; G93.41 Metabolic encephalopathy; E86.0 Dehydration; S31.000A Unspecified open wound of lower back and pelvis without penetration into retroperitoneum, initial encounter; K21.9 Gastro-esophageal reflux disease without esophagitis; I10 Essential (primary) hypertension; I25.2 Old myocardial infarction; I25.10 Atherosclerotic heart disease of native coronary artery without angina pectoris; J44.9 Chronic obstructive pulmonary disease, unspecified; F32.9 Major depressive disorder, single episode, unspecified; F17.200 Nicotine dependence, unspecified, uncomplicated; Z95.5 Presence of coronary angioplasty implant and graft; Z90.710 Acquired absence of both cervix and uterus; Z88.4 Allergy status to anesthetic agent; Z88.8 Allergy status to other drugs, medicaments and biological substances; Z79.82 Long term (current) use of aspirin; Z79.899 Other long term (current) drug therapy; X58.XXXA Exposure to other specified factors, initial encounter
CPT/HCPCS: 36415; 51702; 70450; 71045; 74177; 80053; 81001; 82270; 83605; 83735; 83880; 84484; 85025; 85610; 86140; 87040; 87086; 87230; 87493; 93005; 96365; 96375; 96376; 99285; J1170; J7030; J7040; J7050; Q9967; U0002; 93010